=== PATIENT | male | born 1950 | race Caucasian/White ===

== ENCOUNTER → 2018-08-15 15:47 | Outpatient (CLI) | payer MEDICARE, OTHER, SELFPAY ==
--- NOTE | 2018-08-15 15:53 | DI.RAD.S_ITS ---
PROCEDURE: XR CHEST 2V INDICATIONS: Lymph node swelling in left axilla TECHNIQUE: 2 views of the chest were acquired. COMPARISON: None. FINDINGS: Surgical changes and devices: None. Lungs and pleura: No pleural effusions or pneumothorax. Lungs are clear. Mediastinum: Mediastinal contours are normal. Heart size is normal. Bones and chest wall: No suspicious bony abnormalities. Soft tissues appear unremarkable. IMPRESSION: No acute cardiopulmonary findings. Dictated by: Monse Stephen M.D. on 08/15/2018 at 16:49 Approved by: Monse Stephen M.D. on 08/15/2018 at 16:49
[2018-08-15 16:56] LABS: Hematocrit 39.1 % (41-53); Hemoglobin 12.6 g/dL (13.5-17.5); Mean Corpuscular HGB Conc 32.2 % (30-36); Mean Corpuscular Hemoglobin 31.4 PG (26-34); Mean Corpuscular Volume 97.5 fL (80-100); Platelet Count 93 X10^3/uL (150-400); Red Blood Cell Count 4.01 X10^6/uL (4.5-5.9); Red Cell Distribution Width 14.6 % (11.6-14.8)
[2018-08-15 18:45] LABS: Neutrophils Absolute Manual 1734 /uL (3000-5900); Total Cells Counted 100; White Blood Cell Count 57.8 X10^3/uL (4.5-11.0)
[2018-08-15 18:46] LABS: RBC Morphology Normal Morphology; Smudge Cells 1+
== END ==
PROVIDERS: PCP Internal Medicine; Visit Provider Physician Assistant
DX: R59.9 Enlarged lymph nodes, unspecified (principal); C91.90 Lymphoid leukemia, unspecified not having achieved remission
CPT/HCPCS: 71046; 85025

== ENCOUNTER → 2018-11-06 14:19 | Outpatient (CLI) | payer MEDICARE, OTHER, SELFPAY ==
[2018-11-06 14:51] LABS: Alanine Aminotransferase 29 IU/L (21-72); Albumin 4.5 g/dL (3.5-5.0); Albumin Globulin Ratio 2.1 (1.0-2.8); Alkaline Phosphatase 60 U/L (38-126); Aspartate Aminotransferase 19 IU/L (17-59); Bilirubin Total 0.6 mg/dL (0.2-1.3); Blood Urea Nitrogen 20 mg/dL (9-20); Calcium 8.9 mg/dL (8.4-10.2); Carbon Dioxide 26 mmol/L (22-32); Chloride 109 mmol/L (98-107); Cholesterol 165 mg/dL (140-199); Estimated Glomerular Filt Rate > 60.0 mL/min (>60); Globulin 2.1 g/dL (1.7-4.1); Glucose 96 mg/dL (80-110); HDL Cholesterol 43 mg/dL (40-60); HEMOLYSIS < 15 (0-50); LDL Cholesterol Calculated 104 mg/dL (<100); Potassium 4.2 mmol/L (3.4-5.1); Sodium 144 mmol/L (137-145); Total Protein 6.6 g/dL (6.3-8.2); Triglycerides 90 mg/dL (35-150)
== END ==
PROVIDERS: PCP Internal Medicine; Visit Provider Internal Medicine
DX: E78.2 Mixed hyperlipidemia (principal); I10 Essential (primary) hypertension
CPT/HCPCS: 36415; 80053; 80061

== ENCOUNTER → 2019-01-24 10:08 | Outpatient (CLI) | payer MEDICARE, OTHER, SELFPAY ==
--- NOTE | 2019-01-24 10:10 | DI.RAD.S_ITS ---
PROCEDURE: XR CHEST 2V INDICATIONS: cough TECHNIQUE: 2 views of the chest were acquired. COMPARISON: [facility], CR, XR CHEST 2V, 08/15/2018, 15:46. FINDINGS: Surgical changes and devices: None. Lungs and pleura: Lungs are clear. No pleural effusions or pneumothorax. Mediastinum: Mediastinal contours are normal. Heart size is normal. Bones and chest wall: No suspicious bony abnormalities. Soft tissues appear unremarkable. IMPRESSION: No acute cardiopulmonary disease. Dictated by: Rae Mccormack M.D. on 01/24/2019 at 10:49 Approved by: Rae Mccormack M.D. on 01/24/2019 at 10:52
== END ==
PROVIDERS: PCP Internal Medicine; Visit Provider Internal Medicine
DX: R05 Cough (principal)
CPT/HCPCS: 71046

== ENCOUNTER → 2019-09-16 08:21 | Outpatient (CLI) | payer MEDICARE, OTHER, SELFPAY ==
[2019-09-16 09:10] LABS: Hematocrit 40.9 % (41-53); Hemoglobin 13.2 g/dL (13.5-17.5); Mean Corpuscular HGB Conc 32.3 % (30-36); Mean Corpuscular Hemoglobin 30.8 PG (26-34); Mean Corpuscular Volume 95.4 fL (80-100); Platelet Count 108 X10^3/uL (150-400); Red Blood Cell Count 4.29 X10^6/uL (4.5-5.9); Red Cell Distribution Width 13.4 % (11.6-14.8)
[2019-09-16 09:19] LABS: Alanine Aminotransferase 14 IU/L (<50); Albumin 4.2 g/dL (3.5-5.0); Alkaline Phosphatase 72 U/L (38-126); Aspartate Aminotransferase 19 IU/L (17-59); Bilirubin Total 0.6 mg/dL (0.2-1.3); Blood Urea Nitrogen 19 mg/dL (9-20); Calcium 9.2 mg/dL (8.4-10.2); Carbon Dioxide 30 mmol/L (22-32); Chloride 105 mmol/L (98-107); Cholesterol 155 mg/dL (140-199); Estimated Glomerular Filt Rate > 60.0 mL/min (>60); Globulin 2.1 g/dL (1.7-4.1); Glucose 106 mg/dL (80-110); HDL Cholesterol 55 mg/dL (40-60); HEMOLYSIS < 15 (0-50); LDL Cholesterol Calculated 85 mg/dL (<100); Potassium 4.6 mmol/L (3.4-5.1); Sodium 140 mmol/L (137-145); Total Protein 6.3 g/dL (6.3-8.2); Triglycerides 73 mg/dL (35-150)
[2019-09-16 09:27] LABS: Add Manual Diff / Slide Review YES; White Blood Cell Count 103.3 X10^3/uL (4.5-11.0)
[2019-09-16 09:49] LABS: Prostate Specific Antigen Scrn 0.922 ng/mL (0.1-4.0)
[2019-09-16 12:00] LABS: Neutrophils Absolute Manual 5165 /uL (3000-5900); Total Cells Counted 100
[2019-09-16 12:03] LABS: Smudge Cells 2+
== END ==
PROVIDERS: PCP Internal Medicine; Visit Provider Internal Medicine
DX: Z12.5 Encounter for screening for malignant neoplasm of prostate (principal); C91.90 Lymphoid leukemia, unspecified not having achieved remission; E78.2 Mixed hyperlipidemia; I10 Essential (primary) hypertension
CPT/HCPCS: 36415; 80053; 80061; 85025; G0103

== ENCOUNTER → 2020-03-15 09:52 | Outpatient (CLI) | payer MEDICARE, OTHER, SELFPAY ==
[2020-03-16 05:53] LABS: COVID19 Sendout Not Detected (Not Detect)
== END ==
PROVIDERS: PCP Internal Medicine; Visit Provider Registered Nurse
DX: Z01.818 Encounter for other preprocedural examination (principal)
CPT/HCPCS: 87635

== ENCOUNTER 2020-03-18 06:38 | Day surgery (SDC) | payer MEDICARE, OTHER, SELFPAY ==
[2020-03-18 07:16] VITALS: BP 163/86; PULSE 68; RESP 16; TEMP 37.1; O2SAT 97; BMI 31.0
[2020-03-18] MEDS: SODIUM CHLORIDE 0.9% 1,000 ML 200 ML IV (07:30)
--- NOTE | 2020-03-18 07:47 | P.HP_ITS ---
History of Present Illness History of Present Illness Date Patient Seen: 03/18/20 Time Patient Seen: 07:48 Chief complaint: [id number] Narrative: This is a 69-year-old man with personal history of colon polyps and diverticulosis. He is here for follow-up 5 year surveillance colonoscopy. He denies any interval symptoms. Denies bleeding, melena, hematochezia, unexplained abdominal pain, or unexplained weight loss. He has chronic CLL hypertension and BPH. ROS: Positive for easy bruising, kidney stones, wears glasses. Thirteen system review is otherwise negative other than as mentioned below and in HPI. PE: GENERAL: Well groomed and cooperative. Appears stated age. Answers questions promptly and appropriately. Vital signs noted. HENT: Normocephalic, atraumatic. Hearing intact. Oral mucosa is pink and moist. EYES: Conjunctiva pink, sclera white, no periorbital swelling. CARDIOVASCULAR: Regular rate. No pedal edema. RESPIRATORY: Non-tachypneic, breathing comfortably on room air. GASTROINTESTINAL: Abdomen soft and non-distended GENITALURINARY: No flank tenderness. MUSCULOSKELETAL: Equal tone and mass bilaterally. SKIN: Warm, dry, soft, appropriate color for ethnicity. Scattered ecchymoses on the forearms. No other lesions, rashes, or wounds. NEURO: Alert and Oriented X 3. No gross sensory deficits, or cognitive issues. PSYCH: Appropriate affect and mood. Patient History Medical History Abnormal chest xray (Chronic) Bulging discs (Resolved) Bunion of great toe of right foot (Chronic 12/18/15) Chicken pox (Resolved ~1952) Chronic lymphocytic leukemia (Chronic 12/18/15) Essential hypertension (Chronic 12/18/15) Foot pain (Resolved ~1998) Fracture (Resolved ~1997) H/O adenomatous polyp of colon (Chronic) H/O renal calculi (Inactive) Headache (Resolved ~2004) History of migraine headaches (Chronic) History of [place] fever (Chronic) Measles (Resolved ~1953) Migraines (Resolved ~2004) Mixed hyperlipidemia (Chronic 12/18/15) Plantar warts (Resolved) Restless leg syndrome (Chronic ~2002) Surgical History History of lithotripsy (~1984) History of lithotripsy (~1997) Status post colonoscopy Status post hernia repair (~2005) Status post knee surgery (~2007) Family & Social History Family History Brother Age: 66 High cholesterol Father Heart failure Heart disease Hypertension High cholesterol Colon cancer Mother Age: 93 Atrial fibrillation Fainting Hypertension High cholesterol Social History: household members spouse lives independently Yes caregiver/support person No Tobacco & Substance use: Smoking Status Never smoker alcohol intake current alcohol intake frequency a few times a week Substance Use Type does not use Meds Home Medications and Allergies Home Medications Medication Instructions Recorded Confirmed Type tamsulosin [Flomax] 0.4 mg PO QDAY #7 cap 07/04/17 03/18/20 Rx zolmitriptan [Zomig] 5 mg PO PRN PRN #90 tab 12/11/17 03/18/20 Rx fluticasone propionate 50 1 spray INTRANASAL QDAY #2 spray 06/05/19 03/18/20 Rx mcg/actuation nasal spray,suspension metoprolol succinate [Toprol XL] 50 mg PO QDAY #90 tab 06/05/19 03/18/20 Rx simvastatin [Zocor] 40 mg PO QDAY #90 tab 06/05/19 03/18/20 Rx sildenafil (pulm.hypertension) 20 See Rx Instructions PO .COMPLEX 09/23/19 03/18/20 Rx mg tablet PRN #30 tab ferrous sulfate 325 mg (65 mg 325 mg PO DAILY 10/10/19 03/18/20 History iron) tablet zolpidem 5 mg tablet 5 mg PO BEDTIME PRN #60 tab 11/12/19 03/18/20 Rx Scopalamine patch 1 patch TRANSDERMAL .COMPLEX #9 12/30/19 03/18/20 Rx patch ibrutinib [Imbruvica] 420 mg PO DAILY 03/18/20 03/18/20 History vitamin C31-[id number] acid 1 tab PO DAILY 03/18/20 03/18/20 History Allergies Allergy/AdvReac Type Severity Reaction Status Date / Time No Known Allergies Allergy Verified 03/18/20 07:06 Exam Vital Signs (past 8 hours): - 03/18/20 07:16 Temperature 98.7 F Pulse Rate 68 Respiratory Rate 16 Blood Pressure 163/86 H Pulse Oximetry 97 Oxygen Delivery Method Room Air Assessment & Plan Assessment and plan (1) H/O adenomatous polyp of colon: Current visit: No Status: Chronic (2) Chronic lymphocytic leukemia: Current visit: No Status: Chronic (3) Mixed hyperlipidemia: Current visit: No Status: Chronic (4) Family history of colon cancer: Current visit: Yes Status: Acute Assessment & Plan narrative: Risks and benefits of screening colonoscopy and possible polypectomy were discussed with the patient including risk of bleeding, perforation, need for additional procedures, risks of anesthesia. The patient desires to proceed with the colonoscopy procedure. COVID-19 COVID-19 status: Negative Result date/Date tested (Pos, Neg/Pending): 03/15/20 Time Spent With Patient Time with patient: 25 - 35 minutes
[2020-03-18] MEDS: MIDAZOLAM 5 MG/5 ML VIAL IV (07:53)
[2020-03-18] MEDS: fentaNYL 250 MCG/5 ML INJ IV (07:53)
[2020-03-18 08:07] LABS: Hematocrit 45.8 % (41-53); Hemoglobin 15.8 g/dL (13.5-17.5); Mean Corpuscular HGB Conc 34.6 % (30-36); Mean Corpuscular Volume 89.4 fL (80-100); Platelet Count 109 X10^3/uL (150-400); Red Blood Cell Count 5.12 X10^6/uL (4.5-5.9); Red Cell Distribution Width 14.3 % (11.6-14.8)
[2020-03-18 08:08] LABS: Add Manual Diff / Slide Review YES
--- NOTE | 2020-03-18 08:18 | PM.OP.ENDO ---
Operative Date/Time/Diagnoses Date of procedure: 03/18/20 Time of procedure: 08:18 Pre-op diagnosis: Personal history of colon polyps, high risk family history for colon cancer Post-op diagnosis: same Procedure & Clinicians Study performed: Surveillance colonoscopy Same procedure as scheduled: Yes Indications: This is a 69-year-old man with personal history of colon polyps found on prior colonoscopies, and a family history with high risk for colon cancer. He is here for 5 year follow-up surveillance colonoscopy Surgeon: Mary Santos Procedure Notes SCOAP/Timeout: Performed Procedure in detail: The patient was brought to the room and placed in left lateral decubitus position with all bony prominences padded. A time-out was performed and then the patient was given procedural sedation starting with [4] mg of Versed and [100] mcg of fentanyl. A total of 5 mg of Versed and 200 micro g of fentanyl were given for the entire procedure. Vitals were monitored throughout the procedure and remained stable. Once adequately sedated, the procedure was begun. A rectal exam was performed revealing [no abnormalities]. The colonoscope was then introduced to the rectum and advanced to the cecum in the usual fashion. []The cecum was identified by the mucosal tri-fold, and the ileocecal valve. The ileocecal valve was entered to confirm it was in fact the ileum. Small-bowel mucosa was seen. The scope was then retracted while rotating side to side and examining each mucosal fold. Mild to moderate diverticulosis was seen throughout the descending and sigmoid colon with small to medium-sized mouth diverticula. No evidence of acute or chronic diverticulitis was seen. [] At the conclusion of the procedure retroflexion was performed and [small grade 1-2 internal hemorrhoids without stigmata of bleeding were seen]. No polyps or masses were seen during the procedure. The scope was then withdrawn from the rectum the procedure was concluded. The patient tolerated the procedure well and was transferred to the PACU in stable condition. Scope withdrawal time: 13 Sedation minutes: 23 Findings: diverticulosis Specimen(s): none sent Complications: none Impression: Mild diverticulosis, personal history of colon polyps Post-procedure Recommendations: Colonscopy in 5 years (Due to personal history of colon polyps) Follow up: as needed Disposition: PACU
[2020-03-18 08:24] VITALS: BP 127/80; PULSE 62; RESP 12; TEMP 35.9; O2SAT 96
[2020-03-18 08:29] VITALS: BP 134/90; PULSE 62; RESP 15; O2SAT 96
[2020-03-18 08:34] VITALS: BP 135/79; PULSE 65; RESP 15; TEMP 36.7; O2SAT 96
[2020-03-18 08:39] LABS: Neutrophils Absolute Manual 5040 /uL (3000-5900); RBC Morphology Normal Morphology; Smudge Cells 1+; Total Cells Counted 100
--- NOTE | 2020-03-18 08:39 | SUR.PREOP ---
IV started by ALEXIS Valdez, charted in error Elysia.
[2020-03-18 08:44] VITALS: BP 129/74; PULSE 60; RESP 15; TEMP 36.6; O2SAT 96
== END 2020-03-18 08:51 | disposition home or self-care (01) ==
PROVIDERS: PCP Internal Medicine; Referring Provider Internal Medicine; Visit Provider Surgery
PROC: 0DJD8ZZ Inspection of Lower Intestinal Tract, Via Natural or Artificial Opening Endoscopic (ICD-10-PCS; CPT 45378; principal; 2020-03-18 07:45)
DX: Z12.11 Encounter for screening for malignant neoplasm of colon (principal); Z86.010 Personal history of colon polyps; Z80.0 Family history of malignant neoplasm of digestive organs; C91.90 Lymphoid leukemia, unspecified not having achieved remission; E78.2 Mixed hyperlipidemia; I10 Essential (primary) hypertension; N40.0 Benign prostatic hyperplasia without lower urinary tract symptoms; K57.30 Diverticulosis of large intestine without perforation or abscess without bleeding; K64.0 First degree hemorrhoids
CPT/HCPCS: G0105; 85025; 99152; J2250; J3010

== ENCOUNTER → 2020-06-15 09:21 | Outpatient (CLI) | payer MEDICARE, OTHER, SELFPAY ==
--- NOTE | 2020-06-15 | DI.RAD.S_ITS ---
PROCEDURE: XR ABDOMEN 1V INDICATIONS: KIDNEY STONE TECHNIQUE: One view of the abdomen acquired. COMPARISON: [facility], CT, CHEST/ABD/PEL WITH CONTRAST, 01/10/2018, 10:00. [facility], CR, ABDOMEN 1 VIEW, 08/22/2017, 10:08. FINDINGS: Surgical changes and devices: None. Suboptimal evaluation due to stool overlying the kidneys bilaterally. A previous calcification seen in the region of the lower pole of the left kidney is no longer visualized. Left ureteral stent has been removed. There are multiple sub 5 mm calcifications, projecting the region of the left kidney which may reflect residual nephrolithiasis although could be debris in stool. Further characterization with CT KUB could be performed as clinically necessary Bones: No suspicious bony lesions. IMPRESSION: Status post removal left ureteral stent. Nonspecific calcifications projecting in the left perinephric region as above. Dictated by: Meir Mcintosh M.D. on 06/15/2020 at 10:48 Approved by: Meir Mcintosh M.D. on 06/15/2020 at 10:50
[2020-06-15 11:10] LABS: Prostate Specific Antigen 0.913 ng/mL (0.10-4.00)
== END ==
PROVIDERS: PCP Internal Medicine; Referring Provider Urology; Visit Provider Urology
DX: Z12.5 Encounter for screening for malignant neoplasm of prostate (principal); N20.0 Calculus of kidney
CPT/HCPCS: 36415; 74018; 84153

== ENCOUNTER → 2020-06-18 13:33 | Outpatient (CLI) | payer MEDICARE, OTHER, SELFPAY ==
[2020-06-19 11:42] LABS: COVID19 Sendout Not Detected (Not Detect)
== END ==
PROVIDERS: PCP Internal Medicine; Visit Provider Physician Assistant
DX: Z11.59 Encounter for screening for other viral diseases (principal)
CPT/HCPCS: 87635

== ENCOUNTER 2020-07-26 15:38 | Emergency (ER) | payer MEDICARE, OTHER, SELFPAY ==
[2020-07-26 16:02] VITALS: BP 183/64; PULSE 77; RESP 18; TEMP 36.7; O2SAT 99
--- NOTE | 2020-07-26 16:07 | ED.FALL ---
HPI - Fall General Chief Complaint: Fall Stated Complaint: fall on stairs, left shoulder pain Time Seen by Provider: 07/26/20 15:55 Source: patient Mode of arrival: Ambulatory Limitations: no limitations History of Present Illness HPI Narrative: Patient is a 70-year-old male presents with left shoulder pain. He fell down a few stairs she was walking down wooden stairs in socks when he stepped over kit non 1 stair and then slipped down on his feet down a few other straight stairs at he hit his left shoulder. He feels like it must be broke and. He did not hit his head or lose consciousness he denies any no midline neck pain. He has no numbness tingling weakness. MD complaint: fall Onset (ago): hour(s) Fall from: standing Related Data Home Medications Medication Instructions Recorded Confirmed ferrous sulfate 325 mg (65 mg 325 mg PO DAILY 10/10/19 03/18/20 iron) tablet Imbruvica 420 mg PO DAILY 03/18/20 03/18/20 vitamin A28-hlytp acid 1 tab PO DAILY 03/18/20 03/18/20 Previous Rx's Medication Instructions Recorded tamsulosin [Flomax] 0.4 mg PO QDAY #7 cap 07/04/17 zolmitriptan [Zomig] 5 mg PO PRN PRN #90 tab 12/11/17 fluticasone propionate 50 1 spray INTRANASAL QDAY #2 spray 06/05/19 mcg/actuation nasal spray,suspension metoprolol succinate [Toprol XL] 50 mg PO QDAY #90 tab 06/05/19 simvastatin [Zocor] 40 mg PO QDAY #90 tab 06/05/19 zolpidem 5 mg tablet 5 mg PO BEDTIME PRN #60 tab 11/12/19 Scopalamine patch 1 patch TRANSDERMAL .COMPLEX #9 12/30/19 patch sildenafil (pulm.hypertension) 20 See Rx Instructions PO .COMPLEX 03/27/20 mg tablet PRN #30 tab hydrocodone-acetaminophen [[place]] 1 tab PO Q6H PRN #10 tab 07/26/20 Allergies Allergy/AdvReac Type Severity Reaction Status Date / Time No Known Allergies Allergy Verified 03/18/20 07:06 Review of Systems Review of Systems Narrative: GENERAL: Denies chills,fever HEENT: Denies throat pain RESPIRATORY: Denies dyspnea, cough, wheezing CARDIOVASCULAR: Denies chest pain, palpitations GASTROINTESTINAL: Denies nausea, vomiting MUSCULOSKELETAL: See HPI SKIN: No rash, no laceration, no pruritus NEUROLOGIC: Denies weakness, dizziness, headache, numbness 8 point review of systems is negative except for those stated above and HPI Patient History Medical History Abnormal chest xray (Chronic) Bulging discs (Resolved) Bunion of great toe of right foot (Chronic 12/18/15) Chicken pox (Resolved ~1952) Chronic lymphocytic leukemia (Chronic 12/18/15) Essential hypertension (Chronic 12/18/15) Foot pain (Resolved ~1998) Fracture (Resolved ~1997) H/O adenomatous polyp of colon (Chronic) H/O renal calculi (Inactive) Headache (Resolved ~2004) History of migraine headaches (Chronic) History of [place] fever (Chronic) Measles (Resolved ~1953) Migraines (Resolved ~2004) Mixed hyperlipidemia (Chronic 12/18/15) Plantar warts (Resolved) Restless leg syndrome (Chronic ~2002) Surgical History History of lithotripsy (~1984) History of lithotripsy (~1997) Status post colonoscopy Status post hernia repair (~2005) Status post knee surgery (~2007) Family History Brother Age: 66 High cholesterol Father Heart failure Heart disease Hypertension High cholesterol Colon cancer Mother Age: 93 Atrial fibrillation Fainting Hypertension High cholesterol Social History marital status: number of children: 1 household members: spouse lives independently: Yes caregiver/support person: No housing: house pets and animals: Yes education level: college occupational status: other (Retired) current occupational exposures/hazards: No Previous occupational history: Aviation juanito/church: [employer] special juanito needs: No travel history: over 6 months ago ([place]) leisure activities: exercise, fishing, volunteer work and other (Boating) Smoking Status: Never smoker Tobacco: How many years used: 0 quit status: quit date established (Never a smoker) second hand exposure: No alcohol intake: current substance use type: marijuana (Recreational.) Smoking Status: Never smoker alcohol intake frequency: a few times a week Substance Use Type: does not use Exam Initial Vital Signs Initial Vital Signs: Vital Signs Temperature 98.1 F 07/26/20 16:02 Pulse Rate 77 07/26/20 16:02 Respiratory Rate 18 07/26/20 16:02 Blood Pressure 183/64 H 07/26/20 16:02 Pulse Oximetry 99 07/26/20 16:02 GENERAL: Well-appearing, well-nourished and in no acute distress. HEENT: Head atraumatic,EOMI, pupils reactive, face symmetric, moist mucous membranes CARDIOVASCULAR: Regular rate and rhythm without murmurs, rubs or gallops. RESPIRATORY: Breath sounds equal bilaterally, no wheezes rales or rhonchi. ABDOMEN: Soft, nontender. Normoactive bowel sounds all 4 quadrants. No guarding or rebound. EXTREMITIES: Normal range of motion, no clubbing or edema. Neurovascularly intact. No clavicle step-off tender proximal humerus sensation over the deltoid intact good distal radial pulse NEUROLOGICAL: Alert and oriented x4.Normal gait and speech. SKIN: Warm, dry, no laceration, no petechiae, no rashes or lesions. Procedures Orthopedic Splinting/Casting Injury #1: Side: left Upper Extremity Injury Location: shoulder Upper Extremity Immobilizer: sling/shoulder immobilizer Post splinting neuro exam: intact Post splinting vascular exam: intact Placed by: Nursing Course Orders Ordered: ED Orders 07/26/20 16:07 XR shoulder LT min 2V Stat Discontinued Medications Hydrocodone Bitart/Acetaminophen ([place] 5/325) 2 tab PO NOW ONE Stop: 07/26/20 16:31 Last Admin: 07/26/20 16:34 Dose: 2 tab Documented by: ADRIEN Ondansetron HCl (Zofran Odt) 4 mg SL NOW ONE Stop: 07/26/20 16:31 Last Admin: 07/26/20 16:33 Dose: 4 mg Documented by: ADRIEN Vital Signs Vital signs: Vital Signs - 8 hr 07/26/20 16:02 07/26/20 17:11 Temperature 98.1 F Pulse Rate 77 72 Respiratory Rate 18 14 Blood Pressure 183/64 H 181/71 H Pulse Oximetry 99 99 MDM - Fall Imaging Data Extremity x-ray #1: Radiologist's Impression: PROCEDURE: XR SHOULDER LT MIN 2V INDICATIONS: fall TECHNIQUE: 3 views of the shoulder were acquired. COMPARISON: [facility], CT, CHEST/ABD/PEL WITH CONTRAST, 01/10/2018, 10:00. [facility], CR, XR CHEST 2V, 08/15/2018, 15:46. [facility], CR, XR CHEST 2V, 01/24/2019, 10:12. FINDINGS: Bones: No fractures or dislocations. No suspicious bony lesions. Visualized ribs appear intact. Age-appropriate bony degenerative changes are seen. Mild subacromial spurring is seen. Soft tissues: No suspicious soft tissue calcifications. There is interstitial prominence seen throughout the visualized lungs. IMPRESSION: No displaced fractures are seen on these plain films. If there is focal tenderness, or other clinical concern for a fracture not seen on these images in this patient with a given history of trauma, please consider a dedicated CT or a short-term followup plain film series (in 1-2 weeks) for further evaluation. Interstitial prominence is seen throughout. The interstitial prominence is nonspecific, yet may be related to pulmonary edema. Dictated by: Brandan Bowers M.D. on 07/26/2020 at 15:36 Discharge Plan Departure Patient Disposition: Home Clinical Impression: Sprain of left shoulder Qualifiers: Encounter type: initial encounter Shoulder sprain type: unspecified sprain Qualified Code(s): S43.402A - Unspecified sprain of left shoulder joint, initial encounter Discharge Date/Time: 07/26/20 17:12 Activity Restrictions/Additional Instructions: *You have been diagnosed with left shoulder sprain *What to do: Wear sling for the next 2-3 days but tried to move shoulder as tolerated. May require outpatient MRI if still having pain in a few weeks please talk with your primary care provider felt *Continue to take medications as directed [place] 1 tablet every 6 hours only if needed for severe pain *Follow up with your primary care provider in 2-3 days *Return to ER if you should have this pain weakness numbness or tingling or any new, worsening or concerning symptoms CONTROLLED SUBSTANCE DISCHARGE (Narcotoic/benzodiazepine/Flexeril/Phenergan) 1. You have been prescribed narcotic medications, it does have acetaminophen/Tylenol/paracetamol in it so do not take extra Tylenol or Tylenol containing products TRAMADOL DOES NOT CONTAIN TYLENOL 2. Please understand that we cannot provide further refills of narcotics, benzodiazepines or controlled substances through the ED and her pain management will need to be through your provider. 3. While on these medications you cannot drive or operate heavy machinery. 4. You cannot sign legal documents or perform any duties such as this. 5. As long as you're taking opiate pain medications he should also be taking a stool softener such as Colace, Dulcolax, MiraLAX or prune juice, to help avoid constipation. Prescriptions: New hydrocodone-acetaminophen [[place]] 5-325 mg tablet 1 tab PO Q6H PRN (Reason: pain) Qty: 10 RF: 0 No Action tamsulosin [Flomax] 0.4 MG capsule,extended release 24hr 0.4 mg PO QDAY Qty: 7 RF: 0 zolmitriptan [Zomig] 5 MG tablet 5 mg PO PRN PRNQty: 90 RF: 3 fluticasone propionate 50 mcg/actuation spray,suspension 1 spray Intranasal QDAY Qty: 2 RF: 3 simvastatin [Zocor] 40 mg tablet 40 mg PO QDAY Qty: 90 RF: 3 metoprolol succinate [Toprol XL] 50 mg tablet extended release 24 hr 50 mg PO QDAY Qty: 90 RF: 3 zolpidem 5 mg tablet 5 mg PO BEDTIME PRN (Reason: sleep) Qty: 60 RF: 0 Scopalamine patch 1 patch Transdermal .COMPLEX Qty: 9 RF: 1 sildenafil (pulm.hypertension) 20 mg tablet See Rx Instructions PO .COMPLEX PRN (Reason: sexual activity) Qty: 30 RF: 0 ferrous sulfate 325 mg (65 mg iron) tablet 325 mg PO DAILY RF: 0 Imbruvica 140 mg Capsule 420 mg PO DAILY RF: 0 vitamin R68-gohvz acid 500-400 mcg Tablet 1 tab PO DAILY RF: 0 Referrals: Demar Martinez MD [Primary Care Provider] -
[2020-07-26] MEDS: ONDANSETRON 4 MG ODT SL (16:33)
[2020-07-26] MEDS: HYDROCODONE/ACET 5/325 TABLET 2 TAB PO (16:34)
[2020-07-26 17:11] VITALS: BP 181/71; PULSE 72; RESP 14; O2SAT 99
== END 2020-07-26 17:12 | disposition home or self-care (01) ==
PROVIDERS: Emergency Provider Emergency Medicine; PCP Internal Medicine
DX: S43.402A Unspecified sprain of left shoulder joint, initial encounter (principal); W10.9XXA Fall (on) (from) unspecified stairs and steps, initial encounter
CPT/HCPCS: 73030; 99283; 99284

== ENCOUNTER → 2020-10-07 07:57 | Outpatient (CLI) | payer MEDICARE, OTHER, SELFPAY ==
[2020-10-07 08:29] LABS: Add Manual Diff / Slide Review NO; Basophils Absolute Auto 100 /uL (0-100); Basophils Percent Auto 0.5 % (0-2); Eosinophils Absolute Auto 100 /uL (0-450); Hematocrit 45.4 % (41-53); Hemoglobin 15.1 g/dL (13.5-17.5); Lymphocytes Absolute Auto 5400 /uL (1100-4500); Mean Corpuscular HGB Conc 33.3 % (30-36); Mean Corpuscular Hemoglobin 29.7 PG (26-34); Mean Corpuscular Volume 89.2 fL (80-100); Monocytes Absolute Auto 1000 /uL (0-900); Monocytes Percent Auto 7.9 % (3-14); Neutrophils Absolute Auto 5700 /uL (1500-7000); Neutrophils Percent Auto 46.6 % (50-75); Platelet Count 102 X10^3/uL (150-400); Red Blood Cell Count 5.09 X10^6/uL (4.5-5.9); Red Cell Distribution Width 14.3 % (11.6-14.8); White Blood Cell Count 12.3 X10^3/uL (4.5-11.0)
[2020-10-07 08:40] LABS: Alanine Aminotransferase 18 IU/L (<50); Albumin 4.3 g/dL (3.5-5.0); Alkaline Phosphatase 66 U/L (38-126); Aspartate Aminotransferase 22 IU/L (17-59); BUN Creatinine Ratio 17.6 (6-22); Bilirubin Total 0.7 mg/dL (0.2-1.3); Blood Urea Nitrogen 15 mg/dL (9-20); Carbon Dioxide 28 mmol/L (22-32); Chloride 105 mmol/L (98-107); Cholesterol 166 mg/dL (140-199); Estimated Glomerular Filt Rate > 60.0 mL/min (>60); Globulin 2.2 g/dL (1.7-4.1); Glucose 101 mg/dL (80-110); HDL Cholesterol 58 mg/dL (40-60); HEMOLYSIS < 15 (0-50); LDL Cholesterol Calculated 91 mg/dL (<100); Potassium 4.3 mmol/L (3.4-5.1); Sodium 137 mmol/L (137-145); Total Protein 6.5 g/dL (6.3-8.2); Triglycerides 83 mg/dL (35-150)
== END ==
PROVIDERS: PCP Internal Medicine; Referring Provider Internal Medicine; Visit Provider Internal Medicine
DX: C91.90 Lymphoid leukemia, unspecified not having achieved remission (principal); I10 Essential (primary) hypertension; E78.2 Mixed hyperlipidemia
CPT/HCPCS: 36415; 80053; 80061; 85025

== ENCOUNTER 2021-01-20 10:30 | Observation (INO) | payer MEDICARE, OTHER, SELFPAY ==
[2021-01-20] VITALS (78 sets, daily range): BP systolic 110–252; BP diastolic 60–113; PULSE 41–81; RESP 15–34; TEMP 36.3–36.8; O2SAT 93–99; BMI 32.6; BMI 32.3
--- NOTE | 2021-01-20 10:55 | ED_ITS ---
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 He had been at a orthopedic appointment regarding a recent shoulder injury and noted to have blood pressures with diastolics in the 200 range. He comes in today for further evaluation. He notes that over the last day or so he has had a bit more sensation in the left groin and left flank and he was wondering if another kidney stone was trying to work its way down. He denies no chest pain, dyspnea, cough, abdominal pain, diarrhea or vomiting. He does note that he has quite a bit of bruising from the immunotherapy for the CLL. Related Data Home Medications Medication Instructions Recorded Confirmed ferrous sulfate 325 mg (65 mg 325 mg PO DAILY 10/10/19 10/13/20 iron) tablet Imbruvica 420 mg PO DAILY 03/18/20 10/13/20 vitamin F39-racti acid 1 tab PO DAILY 03/18/20 10/13/20 Scopalamine patch See Rx Instructions TRANSDERMAL 10/13/20 10/13/20 Q72H patch Previous Rx's Medication Instructions Recorded tamsulosin [Flomax] 0.4 mg PO QDAY #7 cap 07/04/17 zolmitriptan [Zomig] 5 mg PO PRN PRN #90 tab 12/11/17 fluticasone propionate 50 1 spray INTRANASAL QDAY #2 spray 06/05/19 mcg/actuation nasal spray,suspension metoprolol succinate [Toprol XL] 50 mg PO QDAY #90 tab 06/05/19 simvastatin [Zocor] 40 mg PO QDAY #90 tab 06/05/19 sildenafil (pulm.hypertension) 20 40 - 100 mg PO DAILY PRN #30 tab 10/16/20 mg tablet zolpidem 5 mg tablet 5 mg PO BEDTIME PRN #30 tab 10/16/20 Allergies Allergy/AdvReac Type Severity Reaction Status Date / Time No Known Allergies Allergy Verified 01/20/21 10:43 Review of Systems Review of Systems Narrative: Remainder of review of systems including constitutional, ENT, cardiovascular, respiratory, GI, , musculoskeletal, skin, neurologic and psychiatric systems reviewed and are unremarkable except as noted in HPI. Patient History Medical History Abnormal chest xray Bulging discs Bunion of great toe of right foot (12/18/15) Chronic lymphocytic leukemia (12/18/15) Essential hypertension (12/18/15) Foot pain (~1998) Fracture (~1997) H/O adenomatous polyp of colon H/O renal calculi Headache (~2004) History of migraine headaches History of [facility] fever Migraines (~2004) Mixed hyperlipidemia (12/18/15) Plantar warts Restless leg syndrome (~2002) Right bundle branch block Surgical History History of lithotripsy (~1984) History of lithotripsy (~1997) Status post colonoscopy Status post hernia repair (~2005) Status post knee surgery (~2007) Family History Brother Age: 67 High cholesterol Father Heart failure Heart disease Hypertension High cholesterol Colon cancer Mother Age: 94 Atrial fibrillation Fainting Hypertension High cholesterol Social History marital status: number of children: 1 household members: spouse lives independently: Yes caregiver/support person: No housing: house pets and animals: Yes education level: college occupational status: other (Retired) current occupational exposures/hazards: No Previous occupational history: Aviation juanito/bahai: Muslim special juanito needs: No travel history: over 6 months ago ([place]) leisure activities: exercise, fishing, volunteer work and other (Boating) Smoking Status: Never smoker Tobacco: How many years used: 0 quit status: quit date established (Never a smoker) second hand exposure: No alcohol intake: current substance use type: marijuana (Recreational.) Smoking Status: Never smoker alcohol intake frequency: a few times a week Substance Use Type: does not use Exam Narrative Exam Narrative: General: Healthy appearing, in no acute distress. Able to give a complete and coherent history. Well-nourished well-developed HEENT: Moist mucous membranes, normal sclera with reactive pupils, Neck: No JVD, supple Respiratory: Lungs are clear to auscultation, no wheezing no rales no rhonchi. Full and symmetrical air movement Cardiac: Regular rate and rhythm no murmurs no bruits Abdomen: Soft, nontender, good bowel tones, no flank pain Skin: Warm and dry, no rashes Neurologic: Grossly neurologically intact with no obvious asymmetries or abnormalities Extremities: No trauma, well perfused Psych: Cooperative, appropriate insight and affect Initial Vital Signs Initial Vital Signs: Vital Signs Pulse Rate 41 L 01/20/21 10:36 Pulse Oximetry 97 01/20/21 10:36 Course Orders Ordered: ED Orders 01/20/21 10:57 Complete Blood Count AUTO DIFF Stat Comprehensive Metabolic Panel Stat Magnesium Stat Troponin I Stat 01/20/21 12:57 XR chest 1V Stat 01/20/21 13:06 COVID19 - ADMIT (CENSUS ENUMERATOR swab/PCR) Stat 01/20/21 13:13 Troponin I Stat Nicardipine HCl 25 mg/ Sodium (Chloride) 250 mls @ 50 mls/hr IV TITRATE WOOD; Protocol Last Titration: 01/20/21 14:17 Dose: 7.5 mg/hr, 75 mls/hr Documented by: Admin: 01/20/21 13:33 Dose: 5 mg/hr, 50 mls/hr Documented by: JOSEPHINE Discontinued Medications Aspirin (Aspirin 81 Mg Chew Tab) 324 mg PO NOW ONE Stop: 01/20/21 13:12 Last Admin: 01/20/21 13:30 Dose: 324 mg Documented by: JOSEPHINE Lisinopril (Lisinopril 20 Mg Tablet) 20 mg PO NOW ONE Stop: 01/20/21 11:11 Last Admin: 01/20/21 11:30 Dose: 20 mg Documented by: ROMERO Vital Signs Vital signs: Vital Signs - 8 hr 01/20/21 10:36 01/20/21 10:40 01/20/21 10:42 Temperature 98.3 F Pulse Rate 41 L 72 81 Respiratory Rate 18 20 Blood Pressure 210/95 H 210/95 H Pulse Oximetry 97 97 98 01/20/21 11:00 01/20/21 11:01 01/20/21 11:30 Temperature Pulse Rate 80 79 72 Respiratory Rate 23 22 Blood Pressure 252/113 H 222/81 H Pulse Oximetry 98 99 95 01/20/21 11:33 01/20/21 12:00 01/20/21 12:01 Temperature Pulse Rate 71 60 60 Respiratory Rate 17 17 16 Blood Pressure 222/91 H 171/74 H Pulse Oximetry 99 97 97 01/20/21 13:02 01/20/21 13:05 01/20/21 13:06 Temperature Pulse Rate 66 64 66 Respiratory Rate 20 Blood Pressure 212/93 H Pulse Oximetry 98 99 01/20/21 13:10 01/20/21 13:15 01/20/21 13:20 Temperature Pulse Rate 61 63 62 Respiratory Rate 24 22 20 Blood Pressure Pulse Oximetry 98 98 98 01/20/21 13:39 01/20/21 13:40 01/20/21 13:45 Temperature Pulse Rate 63 65 76 Respiratory Rate 21 22 21 Blood Pressure 181/81 H 203/100 H Pulse Oximetry 97 98 99 01/20/21 13:50 01/20/21 13:55 01/20/21 14:00 Temperature Pulse Rate 76 76 70 Respiratory Rate 20 22 22 Blood Pressure 189/89 H 181/87 H 176/85 H Pulse Oximetry 99 98 98 01/20/21 14:05 01/20/21 14:10 01/20/21 14:15 Temperature Pulse Rate 69 67 65 Respiratory Rate 20 17 19 Blood Pressure 169/82 H 170/81 H 157/74 H Pulse Oximetry 98 97 95 01/20/21 14:20 01/20/21 14:25 01/20/21 14:30 Temperature Pulse Rate 65 63 60 Respiratory Rate 18 16 15 Blood Pressure 151/72 H 135/70 136/65 Pulse Oximetry 95 94 93 Medical Decision Making Medical Records Medical records reviewed: Yes I reviewed the patient's medical records. Lab Data Lab results reviewed: Yes I reviewed the patient's lab results. Result diagrams: 01/20/21 10:57 01/20/21 10:57 Labs: Lab Results 01/20/21 01/20/21 01/20/21 Range/Units 10:57 10:57 13:06 WBC 11.4 H (4.5-11.0) X10^3/uL RBC 5.31 (4.5-5.9) X10^6/uL Hgb 15.8 (13.5-17.5) g/dL Hct 46.6 (41-53) % MCV 87.6 (80-100) fL MCH 29.7 (26-34) PG MCHC 33.9 (30-36) % RDW 14.1 (11.6-14.8) % Plt Count 103 L (150-400) X10^3/uL Neut % (Auto) 49.0 L (50-75) % Lymph % (Auto) 40.3 H (25-40) % [place] % (Auto) 9.4 (3-14) % Eos % (Auto) 0.8 L (2-4) % Baso % (Auto) 0.5 (0-2) % Neut # (Auto) 5600 (2167-1398) /uL Lymph # (Auto) 4600 H (2653-1971) /uL [place] # (Auto) 1100 H (0-900) /uL Eos # (Auto) 100 (0-450) /uL Baso # (Auto) 100 (0-100) /uL Sodium 137 (137-145) mmol/L Potassium 3.8 (3.4-5.1) mmol/L Chloride 103 (98-107) mmol/L Carbon Dioxide 26 (22-32) mmol/L BUN 21 H (9-20) mg/dL Creatinine 0.90 (0.66-1.25) mg/dL Estimated GFR > 60.0 (>60) mL/min BUN/Creatinine Ratio 23.3 H (6-22) Glucose 118 H (80-110) mg/dL Calcium 9.3 (8.4-10.2) mg/dL Magnesium 2.1 (1.6-2.3) mg/dL Total Bilirubin 0.8 (0.2-1.3) mg/dL AST 28 (17-59) IU/L ALT 19 (<50) IU/L Alkaline Phosphatase 73 (38-126) U/L Troponin I 0.092 H (0.01-0.034) ng/mL Total Protein 6.7 (6.3-8.2) g/dL Albumin 4.4 (3.5-5.0) g/dL Globulin 2.3 (1.7-4.1) g/dL Albumin/Globulin Ratio 1.9 (1.0-2.8) SARS-CoV-2 (PCR) Cancelled 01/20/21 01/20/21 Range/Units 13:06 13:13 WBC (4.5-11.0) X10^3/uL RBC (4.5-5.9) X10^6/uL Hgb (13.5-17.5) g/dL Hct (41-53) % MCV (80-100) fL MCH (26-34) PG MCHC (30-36) % RDW (11.6-14.8) % Plt Count (150-400) X10^3/uL Neut % (Auto) (50-75) % Lymph % (Auto) (25-40) % [place] % (Auto) (3-14) % Eos % (Auto) (2-4) % Baso % (Auto) (0-2) % Neut # (Auto) (7587-8112) /uL Lymph # (Auto) (3490-6522) /uL [place] # (Auto) (0-900) /uL Eos # (Auto) (0-450) /uL Baso # (Auto) (0-100) /uL Sodium (137-145) mmol/L Potassium (3.4-5.1) mmol/L Chloride (98-107) mmol/L Carbon Dioxide (22-32) mmol/L BUN (9-20) mg/dL Creatinine (0.66-1.25) mg/dL Estimated GFR (>60) mL/min BUN/Creatinine Ratio (6-22) Glucose (80-110) mg/dL Calcium (8.4-10.2) mg/dL Magnesium (1.6-2.3) mg/dL Total Bilirubin (0.2-1.3) mg/dL AST (17-59) IU/L ALT (<50) IU/L Alkaline Phosphatase (38-126) U/L Troponin I 0.095 H (0.01-0.034) ng/mL Total Protein (6.3-8.2) g/dL Albumin (3.5-5.0) g/dL Globulin (1.7-4.1) g/dL Albumin/Globulin Ratio (1.0-2.8) SARS-CoV-2 (PCR) Negative Urine Dip Bedside Urine Glucose Negative Bedside Urine Bilirubin - Negative Bedside Urine Ketone - Negative Urine Specific [place] 1.030 Bedside Urine Occult Blood - Negative Bedside Urine pH 6 Bedside Urine Protein - Negative Bedside Urine Urobilinogen - Negative Bedside Urine Nitrite - Negative Bedside Urine Leukocytes - Negative Esterase Point of care testing: Urine Dip Bedside Urine Glucose Negative Bedside Urine Bilirubin - Negative Bedside Urine Ketone - Negative Urine Specific [place] 1.030 Bedside Urine Occult Blood - Negative Bedside Urine pH 6 Bedside Urine Protein - Negative Bedside Urine Urobilinogen - Negative Bedside Urine Nitrite - Negative Bedside Urine Leukocytes - Negative Esterase ECG Data Attestation: I personally reviewed and interpreted this ECG as follows: Interpretation: Sinus rhythm with frequent PVCs at a rate of 72 Right bundle branch block with [place] no obvious ischemic changes MDM Narrative Medical decision making narrative: 70-year-old gentleman presents with significant hypertension mild general malaise but no specific symptoms otherwise. EKG has bigeminy with PVCs no acute ischemic changes with a right bundle branch block. He denies chest pain and dyspnea. Initially he is given 20 mg of lisinopril, has already taken his usual 50 mg of metoprolol succinate) and initial workup continued. His troponin comes back slightly elevated and his blood pressure had come down to 171/74 however it is now back up to 212/93. In light of the elevated troponin will begin nicardipine. A 2nd troponin, COVID study and chest x-ray are all pending. All explain to patient questions are answered. He also notes that he did not feel that he had fully empty his bladder. His po stvoid residual is 200 cc and his prostate appears quite large on bedside ultrasound. He is on Flomax. There is no evidence of UTI or blood to suggest recurrent renal stones. Second troponin is equally elevated. On nicardipine is blood pressure is down to and 129/76 and he is feeling better. Care is reviewed with Dr. Cancino who will admit the patient to the intensive care unit for further evaluation of his blood pressure crisis. Discharge Plan Departure Patient Disposition: Admitted As Inpatient Clinical Impression: Hypertensive crisis, Elevated troponin Admit Date/Time: 01/20/21 14:50 Admit Provider: Javier Cancino
--- NOTE | 2021-01-20 11:02 | PC.NURSE ---
Reports going to ortho for shoulder evaluation and discovered high blood pressure. Patient states he normally gets elevated blood pressures in the dr office but never over 200's. 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
[2021-01-20] MEDS: lisinopriL 20 MG TABLET PO ×2 (11:30→21:05)
[2021-01-20 11:32] LABS: Add Manual Diff / Slide Review NO; Basophils Absolute Auto 100 /uL (0-100); Basophils Percent Auto 0.5 % (0-2); Eosinophils Absolute Auto 100 /uL (0-450); Eosinophils Percent Auto 0.8 % (2-4); Hematocrit 46.6 % (41-53); Hemoglobin 15.8 g/dL (13.5-17.5); Lymphocytes Absolute Auto 4600 /uL (1100-4500); Lymphocytes Percent Auto 40.3 % (25-40); Mean Corpuscular HGB Conc 33.9 % (30-36); Mean Corpuscular Hemoglobin 29.7 PG (26-34); Mean Corpuscular Volume 87.6 fL (80-100); Monocytes Absolute Auto 1100 /uL (0-900); Monocytes Percent Auto 9.4 % (3-14); Neutrophils Absolute Auto 5600 /uL (1500-7000); Platelet Count 103 X10^3/uL (150-400); Red Blood Cell Count 5.31 X10^6/uL (4.5-5.9); Red Cell Distribution Width 14.1 % (11.6-14.8); White Blood Cell Count 11.4 X10^3/uL (4.5-11.0)
[2021-01-20 11:39] LABS: Alanine Aminotransferase 19 IU/L (<50); Albumin 4.4 g/dL (3.5-5.0); Albumin Globulin Ratio 1.9 (1.0-2.8); Alkaline Phosphatase 73 U/L (38-126); Aspartate Aminotransferase 28 IU/L (17-59); BUN Creatinine Ratio 23.3 (6-22); Bilirubin Total 0.8 mg/dL (0.2-1.3); Blood Urea Nitrogen 21 mg/dL (9-20); Calcium 9.3 mg/dL (8.4-10.2); Carbon Dioxide 26 mmol/L (22-32); Chloride 103 mmol/L (98-107); Estimated Glomerular Filt Rate > 60.0 mL/min (>60); Globulin 2.3 g/dL (1.7-4.1); Glucose 118 mg/dL (80-110); HEMOLYSIS < 15 (0-50); Magnesium 2.1 mg/dL (1.6-2.3); Potassium 3.8 mmol/L (3.4-5.1); Sodium 137 mmol/L (137-145); Total Protein 6.7 g/dL (6.3-8.2)
[2021-01-20 11:50] LABS: Troponin I 0.092 ng/mL (0.01-0.034)
--- NOTE | 2021-01-20 12:57 | DI.RAD.S_ITS ---
PROCEDURE: XR CHEST 1V INDICATIONS: arrythmia TECHNIQUE: One view of the chest was acquired. COMPARISON: [facility], CR, XR CHEST 2V, 01/24/2019, 10:12. [facility], CR, XR CHEST 2V, 08/15/2018, 15:46. FINDINGS: Surgical changes and devices: None. Lungs and pleura: Lungs are clear. No pleural effusions or pneumothorax. Mediastinum: Mediastinal contours appear normal. Heart size is mildly enlarged. Bones and chest wall: No suspicious bony lesions. Overlying soft tissues appear unremarkable. IMPRESSION: Mild cardiomegaly, without new CHF. Dictated by: Linus Davila M.D. on 01/20/2021 at 13:46 Approved by: Linus Davila M.D. on 01/20/2021 at 13:47
[2021-01-20] MEDS: ASPIRIN 81 MG CHEW TAB 324 MG PO (13:30)
[2021-01-20] MEDS: NICARDIPINE 25 MG in SODIUM CHLORIDE 0.9% 240 ML 50 ML IV (13:33)
[2021-01-20 13:50] LABS: Troponin I 0.095 ng/mL (0.01-0.034)
[2021-01-20 14:08] LABS: COVID19 - ADMIT (NP swab/PCR) Negative (Negative)
--- NOTE | 2021-01-20 15:37 | PM.HP.1 ---
History of Present Illness History of Present Illness Date Patient Seen: 01/20/21 Time Patient Seen: 15:34 Chief complaint: High b/p today/groin pain/low back pain Narrative: 70-year-old male with a history of hypertension hyperlipidemia CLL presents to the emergency department with elevated blood pressure. Patient states he has a history of hypertension and it has always been a little bit elevated when he goes to the hospital and the doctor's office. Patient was at the orthopedics office having an evaluation because of some rotator cuff concerns. At the office of the orthopedic surgeon patient had blood pressure systolic over 200. It was to get multiple times. He was recommended to present to the emergency department with elevated blood pressure. On arrival to the emergency department his blood pressure was quite elevated. He was given his metoprolol which she did not take that morning and dose of lisinopril. Patient had laboratory tests done an EKG and chest x-ray in further workup evaluation. Patient was completely asymptomatic of elevation of blood pressure. He was not having any shortness of breath blurry vision headache dizziness lightheadedness. Patient was not having any chest pain or palpitations. Patient states he has had some recent increased stress in his life. His he was visiting [facility] [employer] in [place] and was a very stressful week or 2. Patient states that has been a number weeks since he has been down there. After a blood work and evaluation in the emergency department and blood pressure medication patient began to feel a he says a little bit better but he did not feel bad to begin with. On his laboratory test the had a cardiac enzyme troponin which was elevated which came back surprising. Because of his ongoing elevation of his blood pressure and the cardiac enzyme elevation he was placed on nicardipine drip and I was consulted by the emergency room physician to evaluate the patient On my exam patient is comfortable quite talkative. 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 His dad from heart disease. His blood pressure is much better. He says he does not feel any different. He has white coat hypertension. We discussed his recent laboratory tests and findings in the emergency room and elevation of his blood pressure. I recommended further workup and evaluation due to patient's elevated cardiac enzymes. His chest x-ray revealed cardiomegaly. His EKG shows a right bundle branch block. Patient states he has had that before. Patient also says he had a cardiac stress test by Dr. Martinez but it was a number of years ago. He has no known coronary artery disease history. Patient History Medical History Abnormal chest xray Bulging discs Bunion of great toe of right foot (12/18/15) Chronic lymphocytic leukemia (12/18/15) Essential hypertension (12/18/15) Foot pain (~1998) Fracture (~1997) H/O adenomatous polyp of colon H/O renal calculi Headache (~2004) History of migraine headaches History of [facility] fever Migraines (~2004) Mixed hyperlipidemia (12/18/15) Plantar warts Restless leg syndrome (~2002) Right bundle branch block Surgical History History of lithotripsy (~1984) History of lithotripsy (~1997) Status post colonoscopy Status post hernia repair (~2005) Status post knee surgery (~2007) Family & Social History Family History Brother Age: 67 High cholesterol Father Heart failure Heart disease Hypertension High cholesterol Colon cancer Mother Age: 94 Atrial fibrillation Fainting Hypertension High cholesterol Social History: household members spouse lives independently Yes caregiver/support person No Safety & Behavioral: Feels Safe in Current Yes Environment Been Physically Hurt or No Threatened By a Person Tobacco & Substance use: Smoking Status Never smoker alcohol intake current alcohol intake frequency a few times a week Substance Use Type does not use Meds Home Medications and Allergies Home Medications Medication Instructions Recorded Confirmed Type tamsulosin [Flomax] 0.4 mg PO QDAY #7 cap 07/04/17 01/20/21 Rx metoprolol succinate [Toprol XL] 50 mg PO QDAY #90 tab 06/05/19 01/20/21 Rx simvastatin [Zocor] 40 mg PO QDAY #90 tab 06/05/19 01/20/21 Rx ferrous sulfate 325 mg (65 mg 325 mg PO DAILY 10/10/19 01/20/21 History iron) tablet Imbruvica 420 mg PO DAILY 03/18/20 01/20/21 History vitamin U28-lfuie acid 1 tab PO DAILY 03/18/20 01/20/21 History Scopalamine patch See Rx Instructions TRANSDERMAL 10/13/20 01/20/21 History Q72H patch sildenafil (pulm.hypertension) 20 40 - 100 mg PO DAILY PRN #30 tab 10/16/20 01/20/21 Rx mg tablet zolpidem 5 mg tablet 5 mg PO BEDTIME PRN #30 tab 10/16/20 01/20/21 Rx zolmitriptan [Zomig] 5 mg PO PRN PRN 01/20/21 01/20/21 History Allergies Allergy/AdvReac Type Severity Reaction Status Date / Time No Known Allergies Allergy Verified 01/20/21 10:43 Exam Vital Signs (past 8 hours): - 01/20/21 10:36 01/20/21 10:40 01/20/21 10:42 Temperature 98.3 F Pulse Rate 41 L 72 81 Respiratory Rate 18 20 Blood Pressure 210/95 H 210/95 H Pulse Oximetry 97 97 98 01/20/21 11:00 01/20/21 11:01 01/20/21 11:30 Temperature Pulse Rate 80 79 72 Respiratory Rate 23 22 Blood Pressure 252/113 H 222/81 H Pulse Oximetry 98 99 95 01/20/21 11:33 01/20/21 12:00 01/20/21 12:01 Temperature Pulse Rate 71 60 60 Respiratory Rate 17 17 16 Blood Pressure 222/91 H 171/74 H Pulse Oximetry 99 97 97 01/20/21 13:02 01/20/21 13:05 01/20/21 13:06 Temperature Pulse Rate 66 64 66 Respiratory Rate 20 Blood Pressure 212/93 H Pulse Oximetry 98 99 01/20/21 13:10 01/20/21 13:15 01/20/21 13:20 Temperature Pulse Rate 61 63 62 Respiratory Rate 24 22 20 Blood Pressure Pulse Oximetry 98 98 98 01/20/21 13:39 01/20/21 13:40 01/20/21 13:45 Temperature Pulse Rate 63 65 76 Respiratory Rate 21 22 21 Blood Pressure 181/81 H 203/100 H Pulse Oximetry 97 98 99 01/20/21 13:50 01/20/21 13:55 01/20/21 14:00 Temperature Pulse Rate 76 76 70 Respiratory Rate 20 22 22 Blood Pressure 189/89 H 181/87 H 176/85 H Pulse Oximetry 99 98 98 01/20/21 14:05 01/20/21 14:10 01/20/21 14:15 Temperature Pulse Rate 69 67 65 Respiratory Rate 20 17 19 Blood Pressure 169/82 H 170/81 H 157/74 H Pulse Oximetry 98 97 95 01/20/21 14:20 01/20/21 14:25 01/20/21 14:30 Temperature Pulse Rate 65 63 60 Respiratory Rate 18 16 15 Blood Pressure 151/72 H 135/70 136/65 Pulse Oximetry 95 94 93 01/20/21 14:35 01/20/21 14:40 01/20/21 14:45 Temperature Pulse Rate 61 61 62 Respiratory Rate 15 18 17 Blood Pressure 119/69 127/65 129/69 Pulse Oximetry 94 94 94 01/20/21 14:50 01/20/21 14:55 01/20/21 15:00 Temperature Pulse Rate 59 L 65 66 Respiratory Rate 17 20 20 Blood Pressure 135/63 152/75 H 157/72 H Pulse Oximetry 94 97 97 01/20/21 15:05 01/20/21 15:10 01/20/21 15:15 Temperature Pulse Rate 65 63 63 Respiratory Rate 20 19 18 Blood Pressure 147/72 H 137/67 Pulse Oximetry 96 96 97 01/20/21 15:20 Temperature Pulse Rate 63 Respiratory Rate 17 Blood Pressure Pulse Oximetry 96 Oxygen Delivery Method Room Air Narrative Exam Narrative: Gen.: Patient is alert oriented to person place and time and very anxious. HEENT: Pupils equal round and reactive or mucosa is moist neck is supple no lymphadenopathy Cardio: S1-S2 regular rate Respiratory: Lungs are clear to auscultation normal respiratory effort Abdomen: Soft nontender no rebound or guarding. Extremities: Good pedal pulses warm dry profuse no significant edema Neurologic: Grossly intact Objective Labs Result Diagrams: 01/20/21 10:57 01/20/21 10:57 Labs: Laboratory Results - last 24 hr 01/20/21 01/20/21 01/20/21 10:57 10:57 13:06 WBC 11.4 H RBC 5.31 Hgb 15.8 Hct 46.6 MCV 87.6 MCH 29.7 MCHC 33.9 RDW 14.1 Plt Count 103 L Neut % (Auto) 49.0 L Lymph % (Auto) 40.3 H [place] % (Auto) 9.4 Eos % (Auto) 0.8 L Baso % (Auto) 0.5 Neut # (Auto) 5600 Lymph # (Auto) 4600 H [place] # (Auto) 1100 H Eos # (Auto) 100 Baso # (Auto) 100 Sodium 137 Potassium 3.8 Chloride 103 Carbon Dioxide 26 BUN 21 H Creatinine 0.90 Estimated GFR > 60.0 BUN/Creatinine Ratio 23.3 H Glucose 118 H Calcium 9.3 Magnesium 2.1 Total Bilirubin 0.8 AST 28 ALT 19 Alkaline Phosphatase 73 Troponin I 0.092 H Total Protein 6.7 Albumin 4.4 Globulin 2.3 Albumin/Globulin Ratio 1.9 SARS-CoV-2 (PCR) Cancelled 01/20/21 01/20/21 13:06 13:13 WBC RBC Hgb Hct MCV MCH MCHC RDW Plt Count Neut % (Auto) Lymph % (Auto) [place] % (Auto) Eos % (Auto) Baso % (Auto) Neut # (Auto) Lymph # (Auto) [place] # (Auto) Eos # (Auto) Baso # (Auto) Sodium Potassium Chloride Carbon Dioxide BUN Creatinine Estimated GFR BUN/Creatinine Ratio Glucose Calcium Magnesium Total Bilirubin AST ALT Alkaline Phosphatase Troponin I 0.095 H Total Protein Albumin Globulin Albumin/Globulin Ratio SARS-CoV-2 (PCR) Negative Assessment & Plan Assessment & Plan narrative: hypertension urgency patient with strain the elevated blood pressure systolic greater than 200 on arrival to the emergency department his blood pressure came down nicely in the emergency department with oral and IV medication. He will be admitted to the ICU as he is on a nicardipine drip. We will add in additional blood pressure medication restarted back on his home metoprolol and lisinopril. Will gradually wean him off the nicardipine to oral medication. Will monitor closely his vitals. Will place him on cardiac monitors he will have a diet as tolerated. And activity as tolerated. He is a full code. Will further workup his elevated blood pressure by doing electrolytes and kidney function. Elevated cardiac enzyme. Patient has an elevated cardiac troponin. Might be due to his extreme elevation is blood pressure. Patient has no chest pain. He has risk factors for coronary artery disease including hypertension hyperlipidemia and his current age. Will provide laboratory testing with serial cardiac enzymes. An echocardiogram. Patient would benefit from a stress test. He will be placed on aspirin beta-dannie and statin. I do not think at this point he is in need of anticoagulation with heparin. Certainly if his cardiac enzymes change we would proceed with something like that and transfer. Patient will be placed on telemetry monitoring. CLL. Patient undergoing treatment for CLL. He has is home chemotherapy medication with him. We will let him take his continued medication as we do not have it here on our formulary at the hospital. Hyperlipidemia. Patient will be continued on his statin medication. Patient will be admitted to the ICU. Will monitor closely his cardiac enzymes and proceed with a workup of his heart. Patient will be placed on DVT prophylaxis.
[2021-01-20 18:03] LABS: Troponin I 0.087 ng/mL (0.01-0.034)
--- NOTE | 2021-01-20 18:25 | PC.NURSE ---
Addendum entered by Minda Carmona R.N. 01/20/21 21:58: Nicardipine drip stopped at 1639, pt on PO lisinopril and metoprolol for BP mgmt. Pt denying chest pain, any pain shortness of breath, dizziness. Pt alternates between sinus raquel with couplets and runs of SVT. Appears asymptomatic. Provider aware. pt voiding per urinal. Marcelle visited around 1800, updated on pt status and plan of care. Original Note: received report from ED nurse at 1549. pt on 50mg nicardipine drip, denying chest pain, headache, shortness of breath. Patient settled in room, SBP <150. Denying pain, lightheadedness, shortness of breath. ambulated standby assist to restroom
--- NOTE | 2021-01-20 18:53 | DI.ECHO.S_ITS ---
[facility] +---------+ : : [address] : : : : [id number] : : : : Phone: [phone]---------+ Echocardiogram Report + + :Name: NEMESIO SANABRIA Study Date: 01/21/2021 Height: 68 in : :[facility] ReadingLocation: Weight: 212 lb : : Gender: Male BSA: 2.1 m2 : :: 1950 Age: 70 yrs BP: 159/79 mmHg: :Reason For Study: CARDIOMEGALY AND ELEVATED TROPONINS : :Ordering Physician: PO, : :TARA Performed By: Lu Murrell : :Referring: TARA FONTENOT : + + Interpretation Summary The left ventricle is normal in size. The ejection fraction is estimated to be 55-60%. The right ventricle is normal in size and function. There is mild to moderate mitral regurgitation. The mitral regurgitant jet is eccentrically directed. The IVC is of normal diameter and collapses greater than 50% with a sniff. This suggests a low right atrial pressure of 3 mm Hg. Procedure: A two-dimensional transthoracic echocardiogram with color flow and Doppler was performed. The study quality was technically adequate. There is no prior echocardiogram noted for this patient. The patient was in sinus bradycardia with heart rates between 52-60 bpm during the exam. Left Ventricle: The left ventricle is normal in size. There is mild concentric left ventricular hypertrophy. There is no thrombus. The ejection fraction is estimated to be 55-60%. There are no focal wall motion abnormalities. MV E/A: 1.6 Med Peak E' Mike: 6.7 cm/sec E/E' med: 11.8. Right Ventricle: The right ventricle is normal in size and function. Atria: The left atrium is mildly dilated. Right atrial size is normal. There is no Doppler evidence for an interatrial shunt. Mitral Valve: The mitral valve leaflets appear mildly thickened, but open well. The mitral valve leaflets are slightly calcified. There is mild to moderate mitral regurgitation. The mitral regurgitant jet is eccentrically directed. Aortic Valve: The aortic valve opens well. The aortic valve is trileaflet. There is no aortic valve stenosis. No aortic regurgitation is present. Tricuspid Valve: The tricuspid valve is normal in structure and function. There is trace tricuspid regurgitation. Pulmonary artery pressures cannot be estimated because of the lack of a measurable TR jet velocity but the IVC suggests a CVP of around 3 mmHg. Pulmonic Valve: The pulmonic valve leaflets are thin and pliable; valve motion is normal. There is trace pulmonic regurgitation. Great Vessels: The aortic root is normal size. The ascending aorta is at the upper limits of normal in size. The IVC is of normal diameter and collapses greater than 50% with a sniff. This suggests a low right atrial pressure of 3 mm Hg. Pericardium/ Pleura There is no pericardial effusion. There is no pleural effusion. MMode/2D Measurements & Calculations LVIDd: 5.7 cm LVOT diam: 2.3 cm LVIDs: 3.6 cm Ao root diam: 3.5 cm FS: 36.7 % asc Aorta Diam: 3.5 cm EPSS: 1.1 cm IVSd: 1.1 cm LVPWd: 1.2 cm LV ernst. diameter/BSA (cm/m^2): 2.7 LV sys. diameter/BSA (cm/m^2): 1.7 LA A2 area: 22.6 cm2 RA long axis: 5.6 cm LA A4 area: 24.7 cm2 RA area: 18.0 cm2 LA length (vol): 6.3 cm RA vol: 48.9 ml LA vol: 75.6 ml RA : 23.3 ml/m2 LA vol index: 36.1 ml/m2 IVC diam: 1.9 cm RVD1 (basal): 2.1 cm TAPSE: 2.3 cm Doppler Measurements & Calculations Ao V2 max: 153.8 cm/sec LVOT Max Mike: 101.5 cm/sec Ao V2 mean: 106.3 cm/sec LV V1 max P.1 mmHg Ao max P.5 mmHg LV V1 VTI: 20.9 cm Ao mean P.0 mmHg THIAGO(I,D): 2.9 cm2 Ao V2 VTI: 30.7 cm THIAGO(V,D): 2.8 cm2 sev ratio: 0.68 THIAGO indexed to BSA (cm^2/m^2): 1.4 MV E max mike: 79.1 cm/sec PA V2 max: 97.8 cm/sec MV A max mike: 50.0 cm/sec PA V2 mean: 65.7 cm/sec MV E/A: 1.6 PA mean P.0 mmHg Med Peak E' Mike: 6.7 cm/sec PA pr(Accel): 37.9 mmHg E/E' med: 11.8 Lat Peak E' Mike: 7.5 cm/sec E/E' lat: 10.6 E/e' average: 11.2 MV dec time: 0.22 sec SV([facility]): 89.1 ml Reading Physician:03:23 PM
[2021-01-21] VITALS (16 sets, daily range): BP systolic 138–199; BP diastolic 66–91; PULSE 50–107; RESP 15–27; TEMP 35.9–36.7; O2SAT 93–99
[2021-01-21 00:05] LABS: Troponin I 0.091 ng/mL (0.01-0.034)
[2021-01-21 05:25] LABS: Add Manual Diff / Slide Review NO; Basophils Absolute Auto 0 /uL (0-100); Basophils Percent Auto 0.5 % (0-2); Eosinophils Absolute Auto 100 /uL (0-450); Eosinophils Percent Auto 0.8 % (2-4); Hematocrit 44.7 % (41-53); Hemoglobin 15.2 g/dL (13.5-17.5); Lymphocytes Absolute Auto 3600 /uL (1100-4500); Mean Corpuscular HGB Conc 34.1 % (30-36); Monocytes Absolute Auto 800 /uL (0-900); Monocytes Percent Auto 8.1 % (3-14); Neutrophils Absolute Auto 5900 /uL (1500-7000); Neutrophils Percent Auto 56.6 % (50-75); Platelet Count 104 X10^3/uL (150-400); Red Blood Cell Count 5.07 X10^6/uL (4.5-5.9); White Blood Cell Count 10.5 X10^3/uL (4.5-11.0)
[2021-01-21 05:41] LABS: Alanine Aminotransferase 17 IU/L (<50); Albumin 3.9 g/dL (3.5-5.0); Alkaline Phosphatase 57 U/L (38-126); Aspartate Aminotransferase 21 IU/L (17-59); Bilirubin Total 0.8 mg/dL (0.2-1.3); Blood Urea Nitrogen 17 mg/dL (9-20); Calcium 8.9 mg/dL (8.4-10.2); Carbon Dioxide 25 mmol/L (22-32); Chloride 104 mmol/L (98-107); Cholesterol 173 mg/dL (140-199); Estimated Glomerular Filt Rate > 60.0 mL/min (>60); Glucose 102 mg/dL (80-110); HDL Cholesterol 53 mg/dL (40-60); HEMOLYSIS < 15 (0-50); LDL Cholesterol Calculated 94 mg/dL (<100); Sodium 136 mmol/L (137-145); Total Protein 5.9 g/dL (6.3-8.2); Triglycerides 131 mg/dL (35-150)
[2021-01-21 05:50] LABS: NT-proBNP (BNP-Adult 18+) 105 pg/mL (<125)
--- NOTE | 2021-01-21 05:53 | PC.NURSE ---
Pt. continues to be dependent on 5L hiflow 02, sats in the mid 90's at rest, desats to the upper 80's with activity. This am noted pt's HR up to the 130's when she got up to use the BSC, GONZÁLEZ Morales noted pt's HR as high as 148 in nurses station monitor. Pt. denies dizziness, c/o slight dyspnea with activity, lung sounds with few faint crackles to the left base and intermittent dry non productive cough. Pt. voiding adequate concentrated yellow urine. Pt. denies pain. New order for orthostatic B/P qshift received, will do next time pt. gets up. Continue to monitor and treat.
--- NOTE | 2021-01-21 06:12 | PC.NURSE ---
Pt. is alert, oriented and cooperative. Pt denies pain. Pt. is afebrile, HR mostly in the 50's during the night with occasional PVC's, SBP 138-167, DBP-66-88. Voiding adequate amt. using the urinal. Echo needs done today.
--- NOTE | 2021-01-21 08:06 | PM.PN.1 ---
Subjective Subjective Date Patient Seen: 01/21/21 Time Patient Seen: 07:56 Interval history: Patient seen this morning. Discussed his presenting symptoms and course. Reviewed his ER notes and history and physical. Basically he is asymptomatic at this time trying to be very calm. He talks about some stressful times around the of his mother and helping or having to clean out her condominium afterwards etcetera caring in early November Blood pressure has been better and he is now off the nicardipine drip Troponin did not normalize also did not go any higher. Patient has longstanding right bundle branch block, had treadmill testing with perfusion imaging in 2016 that was interpreted as normal Exam Vital Signs (past 8 hours): - 01/21/21 01:00 01/21/21 02:00 01/21/21 03:00 Temperature Pulse Rate 54 L 53 L 55 L Respiratory Rate 18 15 17 Blood Pressure 146/72 H 156/69 H 138/70 Pulse Oximetry 99 93 96 01/21/21 04:00 01/21/21 05:00 01/21/21 06:00 Temperature 96.6 F L Pulse Rate 60 107 H 54 L Respiratory Rate 19 17 25 H Blood Pressure 151/66 H 157/77 H 167/88 H Pulse Oximetry 96 97 97 Oxygen Delivery Method Room Air Oxygen Flow Rate 0 Objective Labs Result Diagrams: 01/21/21 04:56 01/21/21 04:56 Labs: Laboratory Results - last 24 hr 01/20/21 01/20/21 01/20/21 10:57 10:57 13:06 WBC 11.4 H RBC 5.31 Hgb 15.8 Hct 46.6 MCV 87.6 MCH 29.7 MCHC 33.9 RDW 14.1 Plt Count 103 L Neut % (Auto) 49.0 L Lymph % (Auto) 40.3 H Boundary % (Auto) 9.4 Eos % (Auto) 0.8 L Baso % (Auto) 0.5 Neut # (Auto) 5600 Lymph # (Auto) 4600 H Boundary # (Auto) 1100 H Eos # (Auto) 100 Baso # (Auto) 100 Sodium 137 Potassium 3.8 Chloride 103 Carbon Dioxide 26 BUN 21 H Creatinine 0.90 Estimated GFR > 60.0 BUN/Creatinine Ratio 23.3 H Glucose 118 H Calcium 9.3 Magnesium 2.1 Total Bilirubin 0.8 AST 28 ALT 19 Alkaline Phosphatase 73 Troponin I 0.092 H NT-Pro-B Natriuret Pep Total Protein 6.7 Albumin 4.4 Globulin 2.3 Albumin/Globulin Ratio 1.9 Triglycerides Cholesterol LDL Cholesterol, Calc HDL Cholesterol Nasal Screen MRSA (PCR) SARS-CoV-2 (PCR) Cancelled 01/20/21 01/20/21 01/20/21 13:06 13:13 16:30 WBC RBC Hgb Hct MCV MCH MCHC RDW Plt Count Neut % (Auto) Lymph % (Auto) Boundary % (Auto) Eos % (Auto) Baso % (Auto) Neut # (Auto) Lymph # (Auto) Boundary # (Auto) Eos # (Auto) Baso # (Auto) Sodium Potassium Chloride Carbon Dioxide BUN Creatinine Estimated GFR BUN/Creatinine Ratio Glucose Calcium Magnesium Total Bilirubin AST ALT Alkaline Phosphatase Troponin I 0.095 H NT-Pro-B Natriuret Pep Total Protein Albumin Globulin Albumin/Globulin Ratio Triglycerides Cholesterol LDL Cholesterol, Calc HDL Cholesterol Nasal Screen MRSA (PCR) Negative for mrsa SARS-CoV-2 (PCR) Negative 01/20/21 01/20/21 01/21/21 17:23 23:35 04:56 WBC 10.5 RBC 5.07 Hgb 15.2 Hct 44.7 MCV 88.0 MCH 30.0 MCHC 34.1 RDW 14.0 Plt Count 104 L Neut % (Auto) 56.6 Lymph % (Auto) 34.0 Boundary % (Auto) 8.1 Eos % (Auto) 0.8 L Baso % (Auto) 0.5 Neut # (Auto) 5900 Lymph # (Auto) 3600 Boundary # (Auto) 800 Eos # (Auto) 100 Baso # (Auto) 0 Sodium Potassium Chloride Carbon Dioxide BUN Creatinine Estimated GFR BUN/Creatinine Ratio Glucose Calcium Magnesium Total Bilirubin AST ALT Alkaline Phosphatase Troponin I 0.087 H 0.091 H NT-Pro-B Natriuret Pep Total Protein Albumin Globulin Albumin/Globulin Ratio Triglycerides Cholesterol LDL Cholesterol, Calc HDL Cholesterol Nasal Screen MRSA (PCR) SARS-CoV-2 (PCR) 01/21/21 04:56 WBC RBC Hgb Hct MCV MCH MCHC RDW Plt Count Neut % (Auto) Lymph % (Auto) Boundary % (Auto) Eos % (Auto) Baso % (Auto) Neut # (Auto) Lymph # (Auto) Boundary # (Auto) Eos # (Auto) Baso # (Auto) Sodium 136 L Potassium 4.0 Chloride 104 Carbon Dioxide 25 BUN 17 Creatinine 0.85 Estimated GFR > 60.0 BUN/Creatinine Ratio 20.0 Glucose 102 Calcium 8.9 Magnesium Total Bilirubin 0.8 AST 21 ALT 17 Alkaline Phosphatase 57 Troponin I NT-Pro-B Natriuret Pep 105 Total Protein 5.9 L Albumin 3.9 Globulin 2.0 Albumin/Globulin Ratio 2.0 Triglycerides 131 Cholesterol 173 LDL Cholesterol, Calc 94 HDL Cholesterol 53 Nasal Screen MRSA (PCR) SARS-CoV-2 (PCR) PENDING SALE TO [facility] Medical History Abnormal chest xray Bulging discs Bunion of great toe of right foot (12/18/15) Chronic lymphocytic leukemia (12/18/15) Essential hypertension (12/18/15) Foot pain (~1998) Fracture (~1997) H/O adenomatous polyp of colon H/O renal calculi Headache (~2004) History of migraine headaches History of [place] fever Migraines (~2004) Mixed hyperlipidemia (12/18/15) Plantar warts Restless leg syndrome (~2002) Right bundle branch block Surgical History History of lithotripsy (~1984) History of lithotripsy (~1997) Status post colonoscopy Status post hernia repair (~2005) Status post knee surgery (~2007) Family History Brother Age: 67 High cholesterol Father Heart failure Heart disease Hypertension High cholesterol Colon cancer Mother Age: 94 Atrial fibrillation Fainting Hypertension High cholesterol Social History marital status: number of children: 1 household members: spouse lives independently: Yes caregiver/support person: No housing: house pets and animals: Yes education level: college occupational status: other (Retired) current occupational exposures/hazards: No Previous occupational history: Aviation juanito/amish: [employer] special juanito needs: No travel history: over 6 months ago ([place]) leisure activities: exercise, fishing, volunteer work and other (Boating) Smoking Status: Never smoker Tobacco: How many years used: 0 quit status: quit date established (Never a smoker) second hand exposure: No alcohol intake: current substance use type: marijuana (Recreational.) Assessment & Plan Assessment & Plan narrative: 1. Hypertensive crisis-patient's blood pressure numbers have been better. I will increase started yesterday from 20 mg twice daily since his numbers are still quite high to 40 mg twice daily. I do not believe there is room to increase his metoprolol dose given his heart rate in the 50s at rest 2. Coronary ischemia?-patient's troponin did not rise. I presume his minimally elevated troponin due to increased demand if anything. Will obtain echocardiogram today but until blood pressure is better controlled given his history of a normal stress test in 2016 I am not eager to repeat stress testing at this time as patient is asymptomatic and again trending of troponin suggest nonischemic nature. ECGs not been helpful in this regard given his underlying abnormalities. I will likely discharge him and planned as an outpatient stress test with or without Lexiscan material 3. CLL-continue patient's medication which is relatively new since I saw him last in September. No active issues at this point however. Note: Greater than 30 minutes was spent evaluating the patient on the floor, including examining the patient, discussing clinical course with clinical and nursing staff, reviewing clinical course in the computer, preparing documentation and writing orders for continued management of care, discussing status with family as appropriate, reviewing plans for the next 24 hours with both patient/family and nursing staff as appropriate. Quality VTE Deep Vein Thrombosis/Pulmonary Embolism Present on Admission: No
[2021-01-21] MEDS: METOPROLOL ER 50 MG TABLET PO (08:40)
[2021-01-21] MEDS: ENOXAPARIN 40 MG/0.4 ML SYRINGE SUBCUT (08:40)
[2021-01-21] MEDS: SIMVASTATIN 40 MG TABLET PO (08:40)
[2021-01-21] MEDS: SODIUM CHLORIDE 0.9% FLUSH 10 ML IV (08:40)
[2021-01-21] MEDS: TAMSULOSIN 0.4 MG CAPSULE PO (08:40)
[2021-01-21] MEDS: lisinopriL 20 MG TABLET 40 MG PO (08:40)
[2021-01-21] MEDS: ASPIRIN EC 325 MG TABLET PO (08:41)
--- NOTE | 2021-01-21 15:02 | CM.IDA ---
Initial DCP Assessment Note Pt is a 70 yo male, resident of [place], presents from an Ortho appt for extremely elevated BP, echo completed today, pending results, patient is expected to return home this evening w/stress test scheduled outpatient PCP: Demar Martinez Payer: [facility]/[employer] Met w/patient and his , both in good spirits, patient continues to feel well and looking forward to hearing from Dr Martinez re results of echo and hopefully discuss DC instructions w/Dr and/or nursing staff. 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 Patient has no concerns or questions about getting home safely upon DC. Patient/spouse have one son that lives in [place]. Patient reviews the stress he endured arranging hospice on his mother's behalf (in [place]) and attempting to coordinate restricted visits during the COVID-19 pandemic, all while his mom was deteriorating quickly. Patient and spouse tearful as they both recounted their losses this year. Tried to offer support and encouragement and suggested grief counseling and grief support groups as precautions from the COVID-19 pandemic lift. No needs expected upon DC, will follow in case any DC needs or concerns arise. EZRA Carmona Discharge Planning/Care Management CM Discharge Assessment Start: 01/21/21 15:00 Freq: Status: Active Protocol: Document 01/21/21 15:00 MADISYN (Rec: 01/21/21 15:02 MADISYN [id number]) Discharge Planning Assessment Assigned Pediatric Physician EZRA Cazares DPOA/Assigned Designee Name Marcelle Simental, spouse Contact Information [phone] Advance Directives? Yes History Provided By Patient,Significant Other, Medical Record Household Members spouse Type of transporation used prior to Drives own vehicle admit Independent with ADL's Yes Is patient alert and oriented? Yes Barriers to Discharge No Discharge Plan Home Transportation Arrangement Spouse Referrals Initiated None needed
--- NOTE | 2021-01-21 16:54 | PC.NURSE ---
Patient and educated on discharge instructions, including followup with Dr. Martinez in one week (pt to make appointment), new medication dosage and frequency, and symptoms of high blood pressure and stroke. patient and verbalize understanding and are able to teachback. All questions answered, IV removed, tele monitor removed. Patient stable, ambulatory, BP maintained.
--- NOTE | 2021-01-21 16:57 | P.DS_ITS ---
History of Present Illness History of Present Illness Date Patient Seen: 01/21/21 Chief complaint: High b/p today/groin pain/low back pain Narrative: 70-year-old male with a history of hypertension hyperlipidemia CLL presents to the emergency department with elevated blood pressure. Patient states he has a history of hypertension and it has always been a little bit elevated when he goes to the hospital and the doctor's office. Patient was at the orthopedics office having an evaluation because of some rotator cuff concerns. At the office of the orthopedic surgeon patient had blood pressure systolic over 200. It was to get multiple times. He was recommended to present to the emergency department with elevated blood pressure. On arrival to the emergency department his blood pressure was quite elevated. He was given his metoprolol which she did not take that morning and dose of lisinopril. Patient had laboratory tests done an EKG and chest x-ray in further workup evaluation. Patient was completely asymptomatic of elevation of blood pressure. He was not having any shortness of breath blurry vision headache dizziness lightheadedness. Patient was not having any chest pain or palpitations. Patient states he has had some recent increased stress in his life. His he was visiting family down in [place] and was a very stressful week or 2. Patient states that has been a number weeks since he has been down there. After a blood work and evaluation in the emergency department and blood pressure medication patient began to feel a he says a little bit better but he did not feel bad to begin with. On his laboratory test the had a cardiac enzyme troponin which was elevated which came back surprising. Because of his ongoing elevation of his blood pressure and the cardiac enzyme elevation he was placed on nicardipine drip and I was consulted by the emergency room physician to evaluate the patient {From Dr. Cancino's H&P} Discharge Providers Provider Date of admission: 01/20/21 14:50 Discharge Date: 01/21/21 Primary care physician: Demar Martinez MD Discharge provider: Demar Martinez MD Summary Hospital Course Discharge Diagnosis: 1. Hypertensive crisis 2. Type 2 myocardial infarction 3. Chronic lymphocytic leukemia 4. Hypertension, essential Hospital Course: Patient presented to the ER because of severe hypertension in and immediately dangerous range. He required parental a just to control his blood pressure to reduce his risk of stroke in [place]. In addition his troponin was borderline abnormal. He has an underlying abnormal ECG that prevents interpretation for ischemia. He had serial troponins that were unremarkable and did not show evidence of an acute ST-elevation NC Blood pressure was controlled initially on the nicardipine drip and then with oral medication. Patient in no additional symptoms Echocardiogram was performed was failed to show any evidence of prior NC or end-organ changes related to hypertension Patient was therefore felt to be stable to discharge on additional antihypertensives orally with plans for close follow-up as an outpatient and outpatient stress testing. Of note, patient was able to be discharged sooner than expected because of rapid improvement in blood pressure and lack of findings on evaluation as above Status at Discharge Cognitive/behavioral status at discharge: at baseline, oriented Functional status at discharge: independent ambulation Overall status at discharge: patient is back to baseline Exam Vital Signs (past 8 hours): - 01/21/21 09:00 01/21/21 10:00 01/21/21 11:00 Temperature Pulse Rate 63 59 L 55 L Respiratory Rate 27 H 20 19 Blood Pressure 187/87 H 159/79 H 144/80 H Pulse Oximetry 97 99 97 01/21/21 12:00 01/21/21 13:00 01/21/21 15:15 Temperature 97.3 F L Pulse Rate 55 L 50 L 61 Respiratory Rate 20 17 20 Blood Pressure 164/84 H 152/81 H 148/75 H Pulse Oximetry 97 96 97 Oxygen Delivery Method Room Air Oxygen Flow Rate 0 Objective Labs Result Diagrams: 01/21/21 04:56 01/21/21 04:56 Labs: Laboratory Results - last 24 hr 01/20/21 01/20/21 01/20/21 16:30 17:23 23:35 WBC RBC Hgb Hct MCV MCH MCHC RDW Plt Count Neut % (Auto) Lymph % (Auto) Dawson % (Auto) Eos % (Auto) Baso % (Auto) Neut # (Auto) Lymph # (Auto) Dawson # (Auto) Eos # (Auto) Baso # (Auto) Sodium Potassium Chloride Carbon Dioxide BUN Creatinine Estimated GFR BUN/Creatinine Ratio Glucose Calcium Total Bilirubin AST ALT Alkaline Phosphatase Troponin I 0.087 H 0.091 H NT-Pro-B Natriuret Pep Total Protein Albumin Globulin Albumin/Globulin Ratio Triglycerides Cholesterol LDL Cholesterol, Calc HDL Cholesterol Nasal Screen MRSA (PCR) Negative for mrsa 01/21/21 01/21/21 04:56 04:56 WBC 10.5 RBC 5.07 Hgb 15.2 Hct 44.7 MCV 88.0 MCH 30.0 MCHC 34.1 RDW 14.0 Plt Count 104 L Neut % (Auto) 56.6 Lymph % (Auto) 34.0 Dawson % (Auto) 8.1 Eos % (Auto) 0.8 L Baso % (Auto) 0.5 Neut # (Auto) 5900 Lymph # (Auto) 3600 Dawson # (Auto) 800 Eos # (Auto) 100 Baso # (Auto) 0 Sodium 136 L Potassium 4.0 Chloride 104 Carbon Dioxide 25 BUN 17 Creatinine 0.85 Estimated GFR > 60.0 BUN/Creatinine Ratio 20.0 Glucose 102 Calcium 8.9 Total Bilirubin 0.8 AST 21 ALT 17 Alkaline Phosphatase 57 Troponin I NT-Pro-B Natriuret Pep 105 Total Protein 5.9 L Albumin 3.9 Globulin 2.0 Albumin/Globulin Ratio 2.0 Triglycerides 131 Cholesterol 173 LDL Cholesterol, Calc 94 HDL Cholesterol 53 Nasal Screen MRSA (PCR) [facility] Medical History Abnormal chest xray Bulging discs Bunion of great toe of right foot (12/18/15) Chronic lymphocytic leukemia (12/18/15) Essential hypertension (12/18/15) Foot pain (~1998) Fracture (~1997) H/O adenomatous polyp of colon H/O renal calculi Headache (~2004) History of migraine headaches History of [facility] fever Migraines (~2004) Mixed hyperlipidemia (12/18/15) Plantar warts Restless leg syndrome (~2002) Right bundle branch block Surgical History History of lithotripsy (~1984) History of lithotripsy (~1997) Status post colonoscopy Status post hernia repair (~2005) Status post knee surgery (~2007) Family History Brother Age: 67 High cholesterol Father Heart failure Heart disease Hypertension High cholesterol Colon cancer Mother Age: 94 Atrial fibrillation Fainting Hypertension High cholesterol Social History marital status: number of children: 1 household members: spouse lives independently: Yes caregiver/support person: No housing: house pets and animals: Yes education level: college occupational status: other (Retired) current occupational exposures/hazards: No Previous occupational history: Aviation juanito/church: [employer] special juanito needs: No travel history: over 6 months ago ([place]) leisure activities: exercise, fishing, volunteer work and other (Boating) Smoking Status: Never smoker Tobacco: How many years used: 0 quit status: quit date established (Never a smoker) second hand exposure: No alcohol intake: current substance use type: marijuana (Recreational.) Discharge Plan Discharge Plan Patient Disposition: Home Discharge orders & Medications Prescriptions: New lisinopril 20 mg Tablet 40 mg PO BID Qty: 60 RF: 3 Continued tamsulosin [Flomax] 0.4 MG capsule,extended release 24hr 0.4 mg PO QDAY Qty: 7 RF: 0 simvastatin [Zocor] 40 mg tablet 40 mg PO QDAY Qty: 90 RF: 3 metoprolol succinate [Toprol XL] 50 mg tablet extended release 24 hr 50 mg PO QDAY Qty: 90 RF: 3 zolpidem 5 mg tablet 5 mg PO BEDTIME PRN (Reason: sleep) Qty: 30 RF: 1 sildenafil (pulm.hypertension) 20 mg tablet 40 - 100 mg PO DAILY PRN (Reason: sexual activity) Qty: 30 RF: 4 Scopalamine patch See Rx Instructions patch Transdermal Q72H RF: 0 ferrous sulfate 325 mg (65 mg iron) tablet 325 mg PO DAILY RF: 0 zolmitriptan [Zomig] 5 MG tablet 5 mg PO PRN PRN (Reason: Headache) RF: 0 Imbruvica 140 mg Capsule 420 mg PO DAILY RF: 0 vitamin H11-drqur acid 500-400 mcg Tablet 1 tab PO DAILY RF: 0 Follow up/Referrals: Demar Martinez MD [Primary Care Provider] - 1 Week Discharge Health Status Multidrug resistant organism: No MDRO Diet/Activity/Treatments Diet: Diet as Tolerated Discharge Data Primary Care Provider: Demar Martinez Quality VTE Deep Vein Thrombosis/Pulmonary Embolism Present on Admission: No
== END 2021-01-21 16:57 | disposition home or self-care (01) ==
LOC: ED 14:50 → AC 15:04 → ICU 01-21 08:05 → AC 01-22 08:43 → ICU 01-22 14:41
PROVIDERS: Admitting Provider Family Medicine; Emergency Provider Emergency Medicine; PCP Internal Medicine; Referring Provider Emergency Medicine; Visit Provider Internal Medicine
DX: I16.9 Hypertensive crisis, unspecified (principal); I21.A1 Myocardial infarction type 2; I10 Essential (primary) hypertension; C91.10 Chronic lymphocytic leukemia of B-cell type not having achieved remission; E78.5 Hyperlipidemia, unspecified; Z20.822 Contact with and (suspected) exposure to COVID-19
CPT/HCPCS: 36415; 71045; 80053; 80061; 81003; 83735; 83880; 84484; 85025; 87635; 87797; 93005; 93010; 93306; 96365; 96366; 96372; 99217; 99220; 99285; G0378; J1650

== ENCOUNTER → 2021-02-08 10:11 | Outpatient (CLI) | payer MEDICARE, OTHER, SELFPAY ==
[2021-01-20 16:45] VITALS: BMI 32.3
[2021-02-08 13:33] LABS: COVID19 -Nasal RAPID Negative (Negative)
== END ==
PROVIDERS: PCP Internal Medicine; Visit Provider Physician Assistant
DX: Z20.822 Contact with and (suspected) exposure to COVID-19 (principal); I21.A1 Myocardial infarction type 2; I16.9 Hypertensive crisis, unspecified; R94.39 Abnormal result of other cardiovascular function study; I45.10 Unspecified right bundle-branch block; I10 Essential (primary) hypertension
CPT/HCPCS: 78452; 87635; 93016; 93017; 93018; C9803; A9502

== ENCOUNTER → 2021-02-08 | Outpatient (CLI) | payer MEDICARE, OTHER, SELFPAY ==
[2021-01-20 16:45] VITALS: BMI 32.3
--- NOTE | 2021-02-08 07:57 | DI.NM.S_ITS ---
PROCEDURE: NM LELA PERF SPECT REST & STR Rest and exercise myocardial perfusion SPECT with gated imaging and ejection fraction RADIOPHARMACEUTICAL: 25 mCi Tc-99m sestamibi IV at rest and 25.3 mCi Tc-99m sestamibi IV at peak exercise. A two day-protocol was performed. INDICATIONS: hypertension/type 2 ME TECHNIQUE: Radiopharmaceutical was injected at peak stress test, and also at rest. SPECT images were obtained. SPECT myocardial perfusion images were displayed in short axis, horizontal long axis, and vertical long axis views. Gated images were reviewed using [employer] software. COMPARISON: None. CARDIAC STRESS: A standard Norman treadmill exercise tolerance test was performed by the patient under the supervision of an attending staff. The patient exercised for 8 minutes and 5 seconds; functional aerobic impairment (MAHESH) is -10%. Hemodynamic data: There is normal blood pressure and heart rate response to exercise stress. Patient achieved 84% of maximum predicted heart rate at peak exercise. Symptoms: Patient denied chest pain during exercise. EKG: No diagnostic EKG changes of ischemia; frequent PVCs during the study. FINDINGS: Raw data: There is good myocardial labeling by radiotracer. No significant motion artifacts. Sfpk-ry-wjztf ratio is 0.33 (normal is less than 0.38 for sestamibi tracer, and less than 0.50 for thallium tracer). Left ventricle function: Gated images demonstrate normal left ventricle wall thickening. No segmental wall motion abnormality. No transient ischemic dilation; TID is 0.89 (normal less than 1.3). The left ventricle resting end-diastolic volume is 179 mL. Left ventricle stress ejection fraction is 59%; normal values are above 45%. Myocardial perfusion: There is a partially reversible perfusion defect in the basal to mid lateral and inferolateral wall, consistent with prior infarction and moderate ischemia. SSS 11, SRS 4. IMPRESSION: Abnormal nuclear stress test consistent with prior infarction and significant ischemia. 1) There is a partially reversible perfusion defect in the basal to mid lateral and inferolateral wall, consistent with prior infarction and moderate ischemia. SSS 11, SRS 4. 2) Mildly enlarged left ventricle with normal wall motion, and normal systolic function (EF post stress 59%). 3) No ECG evidence of ischemia. 4) Frequent PVCs present during the study. 5) No angina during the study. 6) Above average exercise tolerance (10.1 METs, MAHESH -10%). Target heart rate achieved. 7) Mildly hypertensive response to exercise (resting BP 142/80mmHg, max BP 218/90mmHg). 8) Compared to nuclear stress test 10/17/2016, the perfusion defects in the inferior and inferolateral connelly are new on this study. Dictated by: Juice Bae MD on 02/09/2021 at 17:08 Approved by: Juice Bae MD on 02/09/2021 at 17:25
--- NOTE | 2021-02-09 14:32 | PM.TREADMILL ---
Cardiac Stress Test Report Referral & Results Date Patient Seen: 02/09/21 Requesting provider: Demar Martinez Indication: Hypertensive crisis Rest ECG: Right bundle branch block, old Procedure Note: Today following both written and verbal informed consent the patient was exercised according to a standard Norman protocol patient went for a total of 8 minutes 5 seconds achieving a maximum heart rate of 127 maximum systolic blood pressure of 218. This is approximately 10.1 METS. Exercise was terminated at this point because of targets were met. Patient was also given Cardiolite through a previously started Hep-Lock IV by the diagnostic imaging staff approximately 1 minute prior to the cessation of exercise. Patient had frequent PVCs and somewhat less frequent PACs until heart rate increased at which point these dysrhythmias disappeared Normal heart rate and blood pressure response to exercise Functional aerobic impairment rates about-10% on the active scale or 10% better than average No evidence of ischemia however but patient has baseline underlying ECG abnormality may well mask evidence of ischemia Please see perfusion imaging report as well Impression: Excellent exercise capacity Please see perfusion imaging report for details regarding possible ischemia Please note: Actual ECG tracings can be found in the PACS system.
== END ==
LOC: NUCM 07:56
PROVIDERS: PCP Internal Medicine; Referring Provider Internal Medicine; Visit Provider Internal Medicine
DX: I21.A1 Myocardial infarction type 2 (principal); I16.9 Hypertensive crisis, unspecified; R94.39 Abnormal result of other cardiovascular function study; I45.10 Unspecified right bundle-branch block; I10 Essential (primary) hypertension

== ENCOUNTER → 2021-06-24 09:32 | Outpatient (CLI) | payer MEDICARE, OTHER, SELFPAY ==
[2021-01-20 16:45] VITALS: BMI 32.3
--- NOTE | 2021-06-24 09:43 | DI.RAD.S_ITS ---
PROCEDURE: XR ABDOMEN 1V INDICATIONS: NEPHROLITHIASIS TECHNIQUE: One view of the abdomen acquired. COMPARISON: [facility], CR, XR ABDOMEN 1V, 06/15/2020, 9:29. FINDINGS: Surgical changes and devices: None. Bowel: Bowel gas pattern is normal. Soft tissues: 5 millimeter calcification projects over the lower pole of the left kidney. No additional suspicious calcifications identified. Small phleboliths projecting over the right lower hemipelvis are stable. Visualized solid organ contours appear normal in size. Bones: No suspicious bony lesions. IMPRESSION: Possible 5 millimeter right renal stone. Dictated by: Jennifer Torres MD, PhD on 06/24/2021 at 17:11 Approved by: Jennifer Torres MD, PhD on 06/24/2021 at 17:12
[2021-06-24 11:16] LABS: Prostate Specific Antigen 1.51 ng/mL (0.10-4.00)
== END ==
PROVIDERS: PCP Internal Medicine; Referring Provider Urology; Visit Provider Urology
DX: N20.0 Calculus of kidney (principal); Z12.5 Encounter for screening for malignant neoplasm of prostate
CPT/HCPCS: 36415; 74018; 84153; G0103

== ENCOUNTER → 2022-08-03 08:24 | Outpatient (CLI) | payer MEDICARE, OTHER, SELFPAY ==
[2021-01-20 16:45] VITALS: BMI 32.3
--- NOTE | 2022-08-03 08:30 | DI.RAD.S_ITS ---
PROCEDURE: XR ABDOMEN 1V INDICATIONS: KIDNEY STONE TECHNIQUE: One view of the abdomen acquired. COMPARISON: CT, KIDNEY/ URETER/BLADDER, 07/04/2017, 10:34. [facility], CT, CHEST/ABD/PEL WITH CONTRAST, 01/10/2018, 10:00. [facility], CR, XR KUB, 07/20/2017, 7:06. [facility], CR, XR ABDOMEN 1V, 06/24/2021, 10:12. FINDINGS: Surgical changes and devices: None. Bowel: Bowel gas pattern is normal. Soft tissues: There is a 0.5 cm calcification projecting to the inferior pole of the left kidney, possibly a renal stone. It appears unchanged when compared to the last exam. Visualized solid organ contours appear normal in size. Bones: No suspicious bony lesions. IMPRESSION: Possible 0.5 cm stone in the inferior pole of the left kidney. There is no significant change from the last exam. Dictated by: Rae Mccormack M.D. on 08/03/2022 at 14:08 Approved by: Rae Mccormack M.D. on 08/03/2022 at 14:11
[2022-08-03 11:38] LABS: Prostate Specific Antigen 0.555 ng/mL (0.10-4.00)
== END ==
PROVIDERS: PCP Internal Medicine; Referring Provider Urology; Visit Provider Urology
DX: Z12.5 Encounter for screening for malignant neoplasm of prostate; N20.0 Calculus of kidney
CPT/HCPCS: 36415; 74018; 84153; G0103

== ENCOUNTER → 2022-08-09 16:57 | Outpatient (CLI) | payer MEDICARE, OTHER, SELFPAY ==
[2021-01-20 16:45] VITALS: BMI 32.3
[2022-08-09 18:06] LABS: Free T4, Direct Thyroxine 1.11 ng/dL (0.78-2.19)
[2022-08-09 18:21] LABS: Thyroid Stimulating Hormone 2.72 uIU/mL (0.47-4.68)
== END ==
PROVIDERS: PCP Internal Medicine; Referring Provider Internal Medicine; Visit Provider Internal Medicine
DX: E78.2 Mixed hyperlipidemia (principal); C91.90 Lymphoid leukemia, unspecified not having achieved remission; I10 Essential (primary) hypertension; I48.91 Unspecified atrial fibrillation
CPT/HCPCS: 36415; 84439; 84443

== ENCOUNTER → 2022-08-12 12:31 | Outpatient (CLI) | payer MEDICARE, OTHER, SELFPAY ==
[2021-01-20 16:45] VITALS: BMI 32.3
--- NOTE | 2022-08-12 13:02 | DI.ECHO.S_ITS ---
Interpretation Summary The left ventricle appears normal in size, wall thickness, and systolic function without any focal wall motion abnormalities. The ejection fraction is estimated to be 55-60%. Diastolic function could not be accurately assessed due to atrial fibrillation. The right ventricle is normal in size and function. The right ventricular systolic pressure is estimated to be at least 32 mmHg based on an estimated right atrial pressure of 3 mm Hg. The left atrium is moderately dilated. Right atrial size is normal. There is mild to moderate mitral regurgitation. The mitral regurgitant jet is anteriorly directed, which is consistent with posterior leaflet pathology. There is no other significant valvular heart disease. The aortic root is normal size. Procedure: A two-dimensional transthoracic echocardiogram with color flow and Doppler was performed. The study quality was technically adequate. Comparison is made with the echocardiogram of 01/21/2021. Left Ventricle: The left ventricle appears normal in size, wall thickness, and systolic function without any focal wall motion abnormalities. The ejection fraction is estimated to be 55-60%. Diastolic function could not be accurately assessed due to atrial fibrillation. Right Ventricle: The right ventricle is normal in size and function. Atria: The left atrium is moderately dilated. Right atrial size is normal. The interatrial septum grossly appears intact with no obvious evidence for an atrial septal defect. Mitral Valve: The mitral valve leaflets appear mildly thickened, but open well. There is prolapse of the posterior mitral valve leaflet(s). There is mild to moderate mitral regurgitation. The mitral regurgitant jet is anteriorly directed, which is consistent with posterior leaflet pathology. Aortic Valve: The aortic valve is normal in structure and function. No aortic regurgitation is present. Tricuspid Valve: The tricuspid valve is normal in structure and function. There is mild tricuspid regurgitation. The right ventricular systolic pressure is estimated to be at least 32 mmHg based on an estimated right atrial pressure of 3 mm Hg. Pulmonic Valve: The pulmonic valve is normal in structure and function. There is trace pulmonic regurgitation. There is no other significant valvular heart disease. Great Vessels: The aortic root is normal size. The dimensions of the ascending aorta are normal. The IVC is of normal diameter and collapses greater than 50% with a sniff. This suggests a low right atrial pressure of 3 mm Hg. Pericardium/ Pleura There is no pericardial effusion. There is no pleural effusion. MMode/2D Measurements & Calculations LVIDd: 4.8 cm LVOT diam: 2.3 cm LVIDs: 3.7 cm Ao root diam: 3.3 cm FS: 22.9 % asc Aorta Diam: 3.5 cm IVSd: 1.2 cm LVPWd: 1.1 cm LV ernst. diameter/BSA (cm/m^2): 2.3 LV sys. diameter/BSA (cm/m^2): 1.8 LA A2 area: 24.5 cm2 RA long axis: 6.5 cm LA A4 area: 26.7 cm2 RA area: 19.3 cm2 LA length (vol): 6.4 cm RA vol: 48.9 ml LA vol: 86.4 ml RA : 24.0 ml/m2 LA vol index: 42.4 ml/m2 TAPSE: 1.9 cm Doppler Measurements & Calculations Ao V2 max: 124.1 cm/sec LVOT Max Mike: 109.1 cm/sec Ao V2 mean: 85.9 cm/sec LV V1 max P.8 mmHg Ao max P.2 mmHg LV V1 VTI: 17.2 cm Ao mean P.3 mmHg THIAGO(I,D): 4.9 cm2 Ao V2 VTI: 14.6 cm THIAGO(V,D): 3.7 cm2 sev ratio: 1.2 THIAGO indexed to BSA (cm^2/m^2): 2.4 TR max mike: 268.5 cm/sec MR VTI: 131.8 cm TR max P.8 mmHg SV(LVOT): 71.7 ml Reading Physician:02:34 PM
== END ==
PROVIDERS: PCP Internal Medicine; Referring Provider Internal Medicine; Visit Provider Internal Medicine
DX: I48.91 Unspecified atrial fibrillation (principal); I10 Essential (primary) hypertension; E78.2 Mixed hyperlipidemia; C91.90 Lymphoid leukemia, unspecified not having achieved remission; I08.1 Rheumatic disorders of both mitral and tricuspid valves
CPT/HCPCS: 93306

== ENCOUNTER → 2022-09-19 09:32 | Outpatient (CLI) | payer MEDICARE, OTHER, SELFPAY ==
[2021-01-20 16:45] VITALS: BMI 32.3
[2022-09-19 11:03] LABS: COVID19 -Nasal RAPID Negative (Negative)
--- NOTE | 2022-09-19 21:43 | DI.NM.S_ITS ---
DATE OF SERVICE: 09/19/2022 PROCEDURE: Exercise stress test perfusion study. INDICATION: Atrial fibrillation with underlying hypertension and hyperlipidemia. RADIOPHARMACEUTICAL: 25.6 millicurie technetium-99m Myoview IV was injected at stress and 12.3 millicurie technetium-99m Myoview IV was injected at rest. CARDIAC STRESS: The patient underwent exercise perfusion study under the supervision of an attending staff, as per standard protocol. She walked on Norman protocol for 9 minutes, 41 seconds, achieved maximum heart rate of 165, which was 110 percent of target heart rate. Baseline rhythm was AFib with right bundle branch block, intermittent PVCs. During stress, there were no convincing ischemic changes seen. No worsening ventricular arrhythmias during exercise. Reappearance of PVCs in the recovery. No sustained ventricular tachycardia. Peak blood pressure 170/70 mmHg. No ischemic symptoms. No claudication. Achieved 10.1 METs of workload. MAHESH -38 percent. RAW DATA: There is increased subdiaphragmatic activity. GATED STUDY: Resting LV ejection fraction 56 and stress LV ejection fraction is 60 percent without any obvious wall motion abnormalities. Resting end-diastolic volume 128 mL. TID ratio 0.90, which is within normal limits. Lung/heart ratio 0.34, which is within normal limits. MYOCARDIAL PERFUSION SCAN: Stress supine, resting supine and stress prone images were compared to each other. Stress supine and resting supine images revealed moderate-size, moderately decreased perfusion of inferior wall extending into the inferoapex, as well as basal inferolateral wall, which got significantly improved during stress prone images. However, stress prone images remaining have minimally decreased perfusion of inferoapex. No reversible ischemia. CONCLUSION: I will call this study likely a normal myocardial perfusion study with evidence of diaphragmatic tissue attenuation artifact, which got resolved during stress prone images. Excellent exercise tolerance. The patient walked on Norman protocol for 9 minutes and 41 seconds. Functional aerobic impairment - 38 percent. Preserved left ventricular function. The patient had a perfusion study on 02/08/2021, at that time, there was partially reversible ischemia in the base to mid lateral and inferolateral wall, consistent with prior infarction and ischemia. On this study, no obvious myocardial infarction or ischemia. Previous functional aerobic impairment was -10 percent. On this study, functional aerobic impairment improved to -38 percent. Overall, low-risk myocardial perfusion scan. Tereso Simental - NATALIA/maite/boyd doc#: [id number]/job#: [id number] dd: 09/19/2022 17:00:00 dt: 09/19/2022 21:16:00 DICTATING /COPIES TO: Marlene Mcelroy MD COPIES MNE: ISABELA;
== END ==
PROVIDERS: PCP Internal Medicine; Referring Provider Internal Medicine; Visit Provider Internal Medicine
DX: I48.0 Paroxysmal atrial fibrillation (principal); I10 Essential (primary) hypertension; E78.5 Hyperlipidemia, unspecified; Z20.822 Contact with and (suspected) exposure to COVID-19
CPT/HCPCS: 78452; 87635; 93017; A9502

== ENCOUNTER → 2024-08-23 10:51 | Outpatient (CLI) | payer MEDICARE, OTHER, SELFPAY ==
[2021-01-20 16:45] VITALS: BMI 32.3
[2024-08-23 11:46] LABS: Add Manual Diff / Slide Review NO; Basophils Absolute Auto 0 /uL (0-100); Basophils Percent Auto 0.4 % (0-2); Eosinophils Absolute Auto 100 /uL (0-450); Eosinophils Percent Auto 1.4 % (2-4); Hematocrit 47.1 % (41-53); Hemoglobin 15.4 g/dL (13.5-17.5); Lymphocytes Absolute Auto 900 /uL (1100-4500); Lymphocytes Percent Auto 11.6 % (25-40); Mean Corpuscular HGB Conc 32.8 % (30-36); Mean Corpuscular Hemoglobin 30.9 PG (26-34); Mean Corpuscular Volume 94.1 fL (80-100); Monocytes Absolute Auto 800 /uL (0-900); Neutrophils Absolute Auto 5900 /uL (1500-7000); Neutrophils Percent Auto 75.6 % (50-75); Platelet Count 176 X10^3/uL (150-400); Red Cell Distribution Width 14.1 % (11.6-14.8); White Blood Cell Count 7.7 X10^3/uL (4.5-11.0)
[2024-08-23 12:05] LABS: HEMOLYSIS < 15 (0-50); Iron 150 ug/dL (49-181)
[2024-08-23 12:14] LABS: Alanine Aminotransferase 22 IU/L (<50); Albumin 4.2 g/dL (3.5-5.0); Albumin Globulin Ratio 2.1 (1.0-2.8); Alkaline Phosphatase 90 U/L (38-126); Aspartate Aminotransferase 23 IU/L (17-59); BUN Creatinine Ratio 17.9 (6-22); Bilirubin Total 0.9 mg/dL (0.2-1.3); Blood Urea Nitrogen 21 mg/dL (9-20); Calcium 9.3 mg/dL (8.4-10.2); Carbon Dioxide 26 mmol/L (22-32); Chloride 102 mmol/L (98-107); Cholesterol 151 mg/dL (140-199); Estimated Glomerular Filt Rate > 60 mL/min (>60); Glucose 110 mg/dL (80-110); HDL Cholesterol 57 mg/dL (40-60); HEMOLYSIS < 15 (0-50); LDL Cholesterol Calculated 74 mg/dL (<100); Potassium 4.8 mmol/L (3.4-5.1); Sodium 135 mmol/L (137-145); Total Protein 6.2 g/dL (6.3-8.2); Triglycerides 99 mg/dL (35-150)
[2024-08-23 12:19] LABS: Percent Iron Saturation 46 % (20-50); Total Iron Binding Capacity 323 ug/dL (261-462); Transferrin 253 mg/dL (206-381)
[2024-08-23 12:37] LABS: TSH w/ Reflex to FT4 1.97 uIU/mL (0.47-4.68)
== END ==
PROVIDERS: PCP Internal Medicine; Referring Provider Internal Medicine; Visit Provider Internal Medicine
DX: I48.19 Other persistent atrial fibrillation (principal); I10 Essential (primary) hypertension; C91.90 Lymphoid leukemia, unspecified not having achieved remission; E78.2 Mixed hyperlipidemia
CPT/HCPCS: 36415; 80053; 80061; 83540; 83550; 84443; 85025

== ENCOUNTER 2025-03-17 11:36 | Day surgery (SDC) | payer MEDICARE, OTHER, SELFPAY ==
[2021-01-20 16:45] VITALS: BMI 32.3
--- NOTE | 2025-03-17 | PATH_ITS ---
[facility] Accession Number: [id number] No. of containers..01 Tissue . 01 Material submitted: . colon - COLON, CECUM POLYP . 01 Diagnosis: CECAL POLYP: Tubular adenoma. MRV 03/20/2025 1358 Local . 01 Electronically signed: . Christina Powell MD, Pathologist NPI- [id number] . 01 Gross description: . The specimen is received in formalin with two patient identifiers and cecum polyp, and consists of a 0.3 cm in greatest dimension, shin, soft tissue, submitted in toto in cassette A1. ([id number]) /MRV 03/18/2025 2211 Local . 01 Pathologist provided ICD-10: D12.0 . 01 CPT . 683960 Specimen Comment: A courtesy copy of this report has been sent to [phone] Performed at: [address] [facility] [address], [place], [place] [id number] MD Michael Cuello MD Phone: [phone]
[2025-03-17 12:31] VITALS: BP 127/84; PULSE 64; RESP 17; TEMP 36.3; O2SAT 99
[2025-03-17] MEDS: LACTATED RINGERS 1,000 ML 42 ML IV (12:48)
--- NOTE | 2025-03-17 13:02 | P.HP_ITS ---
History of Present Illness History of Present Illness Date Patient Seen: 03/17/25 Chief complaint: Colonoscopy Narrative: History of colon polyps [facility] Medical History (Updated 03/09/23 @ 15:24 by Demar Martinez MD) Presence of Watchman left atrial appendage closure device (~12/2022) Atrial fibrillation COVID-19 Coronary artery disease involving [place] coronary artery of [place] heart without angina pectoris Right bundle branch block Family history of colon cancer H/O adenomatous polyp of colon History of migraine headaches History of [facility] fever Abnormal chest xray Restless leg syndrome (~2002) Migraines (~2004) Headache (~2004) Bulging discs Fracture (~1997) Foot pain (~1998) Plantar warts H/O renal calculi Mixed hyperlipidemia (12/18/15) Essential hypertension (12/18/15) Chronic lymphocytic leukemia (12/18/15) Bunion of great toe of right foot (12/18/15) Surgical History History of lithotripsy (~1997) History of lithotripsy (~1984) Status post colonoscopy Status post knee surgery (~2007) Status post hernia repair (~2005) Family History Brother Age: 71 High cholesterol Father Heart failure Heart disease Hypertension High cholesterol Colon cancer Mother Age: 98 Atrial fibrillation Fainting Hypertension High cholesterol Social History marital status: number of children: 1 household members: spouse lives independently: Yes caregiver/support person: No housing: house pets and animals: Yes education level: college occupational status: other (Retired) current occupational exposures/hazards: No Previous occupational history: Aviation juanito/yazidi: [employer] special juanito needs: No travel history: over 6 months ago ([place]) leisure activities: exercise, fishing, volunteer work and other (Boating) Smoking Status: Never smoker Tobacco: How many years used: 0 quit status: quit date established (Never a smoker) second hand exposure: No alcohol intake: current substance use type: marijuana (Recreational.) Meds Home Medications and Allergies Home Medications Medication Instructions Recorded Confirmed Type tamsulosin 0.4 mg capsule (Flomax) 0.4 mg PO QDAY #7 caps 07/04/17 03/17/25 Rx ferrous sulfate 325 mg (65 mg 325 mg PO DAILY 10/10/19 09/06/24 History iron) tablet vitamin B12 500 mcg-folic acid 400 1 tab PO DAILY 03/18/20 09/06/24 History mcg tablet chlorthalidone 25 mg tablet 12.5 mg PO DAILY 04/26/21 03/17/25 History lisinopril 40 mg tablet 40 mg PO DAILY #90 tabs 12/15/21 03/17/25 Rx finasteride 5 mg tablet 5 mg PO DAILY 02/21/22 03/17/25 History acalabrutinib 100 mg capsule 100 mg PO BID 08/17/23 03/17/25 History amlodipine 5 mg tablet 5 mg PO DAILY 08/17/23 03/17/25 History aspirin 81 mg tablet,delayed 81 mg PO DAILY 08/17/23 03/17/25 History release carvedilol 6.25 mg tablet 6.25 mg PO BID 08/17/23 03/17/25 History fluticasone propionate 50 2 spray intranasal DAILY 08/17/23 09/06/24 History mcg/actuation nasal spray,suspension sildenafil (pulm.hypertension) 20 40 - 100 mg (2 - 5 x 20 mg) PO 08/21/23 09/06/24 Rx mg tablet DAILY PRN sexual activity #30 tabs atorvastatin 40 mg tablet 80 mg PO DAILY 09/06/24 03/17/25 History sodium,potassium,mag sulfates 17.5 See Rx Instructions PO .COMPLEX 02/06/25 Rx gram-3.13 gram-1.6 gram oral soln #354 mL (Suprep Bowel Prep Kit) scopolamine base 1 mg over 3 days 1 patch transdermal Q72H #10 ea 02/10/25 Rx transdermal patch zolpidem 10 mg tablet 5 mg PO BEDTIME PRN insomnia 03/17/25 03/17/25 History Allergies Allergy/AdvReac Type Severity Reaction Status Date / Time No Known Allergies Allergy Verified 03/17/25 12:26 Exam Vital Signs (past 8 hours): - 03/17/25 12:31 Temperature 97.4 F L Pulse Rate 64 Respiratory Rate 17 Blood Pressure 127/84 Pulse Oximetry 99 Oxygen Delivery Method Room Air Oxygen Delivery Method Room Air Narrative Exam Narrative: Oropharynx free of lesions Chest clear to auscultation percussion Cardiac exam reveals no S3 or murmur Assessment & Plan Assessment & Plan narrative: History of colon polyps. Need for follow-up colonoscopy. Risks, benefits, alternatives have been explained Time-Based Coding :: [TOTAL MINUTES] spent with patient and on the chart (including review of chart, obtaining history, exam, reviewing outside data, placing orders, documenting exam and treatment plan, and counseling patient) on [DATE]. PROFEE Dry Boss Document charge(s): No
--- NOTE | 2025-03-17 13:04 | PM.OP.COLON ---
Operative Date/Time/Diagnoses Date of procedure: 03/17/25 Time of procedure: 14:46 Pre-op diagnosis: See indication and findings Post-op diagnosis: same Procedure & Clinicians Study performed: Colonoscopy Same procedure as scheduled: Yes Indications: History of colon polyps Surgeon: Hector Zeng Procedure Notes Procedure in detail: After informed consent was obtained the patient was placed in left lateral decubitus position. The video colonoscope was introduced the rectum slowly advanced cecum. Preparation was only fair. On slow withdrawal mucosa was carefully examined. The scope was removed. The patient tolerated the procedure well. Blood loss none Complications none Sedation mac Findings 1. 4 mm cecal polyp Jumbo biopsy removed completely 2. Relatively poor prep 3. Otherwise negative colonoscopy to cecum Given his polyp which will probably be adenomatous and his poor preparation I suggest he follow-up with colonoscopy in 3 years
[2025-03-17 14:00] VITALS: BP 106/67; PULSE 90; RESP 16; TEMP 36.1; O2SAT 97
[2025-03-17 14:05] VITALS: BP 108/56; PULSE 82; RESP 15; O2SAT 98
[2025-03-17 14:19] VITALS: BP 110/76; PULSE 83; RESP 18; O2SAT 96
== END 2025-03-17 14:54 | disposition home or self-care (01) ==
PROVIDERS: PCP Internal Medicine; Referring Provider Internal Medicine Gastroenterology; Visit Provider Internal Medicine Gastroenterology
PROC: 0DJD8ZZ Inspection of Lower Intestinal Tract, Via Natural or Artificial Opening Endoscopic (ICD-10-PCS; CPT 45378; principal; 2025-03-17 13:00)
DX: Z12.11 Encounter for screening for malignant neoplasm of colon (principal); Z86.0100 Personal history of colon polyps, unspecified; D12.0 Benign neoplasm of cecum
CPT/HCPCS: 45380; J2405; J2704